=== PATIENT | male | born 1935 | race Caucasian/White ===

== ENCOUNTER 2018-11-13 18:40 | Emergency (ER) | payer MEDICARE, OTHER, SELFPAY ==
[2018-11-13 18:57] VITALS: BP 128/83; PULSE 60; RESP 17; TEMP 36.9; O2SAT 97; BMI 29.7
[2018-11-13 19:00] VITALS: BP 110/72; PULSE 58; RESP 19; O2SAT 96
--- NOTE | 2018-11-13 19:02 | DI.RAD.S_ITS ---
PROCEDURE: XR CHEST 1V INDICATIONS: shortness of breath TECHNIQUE: One view of the chest was acquired. COMPARISON: [facility], , CHEST 1 VIEW, 12/24/2016, 15:56. FINDINGS: Surgical changes and devices: None. Lungs and pleura: Lungs are clear. No pleural effusions or pneumothorax. Mediastinum: Mediastinal contours appear normal. Heart size is normal. Bones and chest wall: No suspicious bony lesions. 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 Overlying soft tissues appear unremarkable. IMPRESSION: No acute cardiopulmonary disease process. Dictated by: Shelby Briggs MD, PhD on 11/13/2018 at 19:31 Approved by: Shelby Briggs MD, PhD on 11/13/2018 at 19:32
--- NOTE | 2018-11-13 19:10 | ED.SOB ---
HPI - SOB/Dyspnea General Chief Complaint: Shortness of Breath/Dyspnea Stated Complaint: states heart problems,tired,swelling in stomach Time Seen by Provider: 11/13/18 18:44 Source: patient Mode of arrival: ambulatory Limitations: no limitations History of Present Illness The patient has intermittent dyspnea on exertion, such as climbing the steps on the [place] when coming here from his home nearby on [facility]. He has also had intermittent chest pain when resting at night. The pain is very brief. He has no sustained pain. He has a thoracic aneurysm that has been monitored by his block cableman. He has had no concerns about the aneurysm since it was initially discovered. He has no associated back pain. He feels like he has had some edema to lower extremities, he has increased urine output. He has no dyspnea at rest, and no orthopnea. He is on Lupron for prostate cancer. He has noted difficulty with urine output. He does structured workouts 3 times weekly, including aerobic and anaerobic exercise. He monitors his heart rate. He routinely gets his heart rate up to 140 bpm when working out. He did so earlier today during his workout without difficulty or concern. He has no history of known CAD, [place], CHF, or PE/DVT. He has no recent illness. Related Data Allergies Allergy/AdvReac Type Severity Reaction Status Date / Time No Known Drug Allergies Allergy Unknown Unverified 07/25/17 13:08 [NO KNOWN DRUG ALLERGIES] meperidine [MEPERIDINE] AdvReac Unknown Unverified 07/25/17 13:08 Review of Systems Review of Systems ROS Unobtainable: All systems reviewed & are unremarkable except as noted in HPI and below Constitutional Denies chills, Reports fatigue (With exertion as described in HPI), Denies fever(s) and Denies lethargy Eyes Comments: No eye complaints ENT Comments: No ENT complaints Cardiovascular Reports as per HPI and Reports dyspnea on exertion Respiratory Reports as per HPI, Denies cough, Reports dyspnea on exertion and Denies wheezing Gastrointestinal Gastrointestinal: Denies abdominal pain, Denies change in bowel habits, Denies diarrhea, Denies nausea and Denies vomiting Genitourinary Comments: Normal urine output. History of prostate cancer. Musculoskeletal Denies back pain, Denies muscle weakness, Denies numbness and Denies tingling Integumentary/Breasts Denies erythema and Denies rash Neurologic Denies confusion, Denies numbness and Denies tingling Psychiatric Denies anxiety and Denies confusion Endocrine Reports fatigue (With exertion as described in HPI) Allergic/Immunologic Denies wheezing [facility] Medical History (Updated 11/13/18 @ 20:44 by Diego Harrington MD) Prostate cancer (Acute) Thoracic aortic aneurysm (Acute) Surgical History (Updated 11/13/18 @ 19:21 by Diego Harrington MD) No pertinent past surgical history (Acute) Social History Smoking Status: Never smoker Social History Smoking Status: Never smoker Exam Initial Vital Signs Initial Vital Signs: Vital Signs Temperature 98.4 F 11/13/18 18:57 Pulse Rate 60 11/13/18 18:57 Respiratory Rate 17 11/13/18 18:57 Blood Pressure 128/83 11/13/18 18:57 Pulse Oximetry 97 11/13/18 18:57 Const General: cooperative and well developed Nutritional Appearance: well nourished Orientation: alert, awake, oriented x3 and not confused [facility] Head: normocephalic and atraumatic Eyes Conjunctivae: conjunctivae normal Sclera: sclerae normal Pupils: PERRL Neck Neck: No JVD Carotids: no bruits Chest Chest: normal inspection of the chest Resp Auscultation: clear to auscultation bilaterally Cardio Rate: regular rate Rhythm: regular rhythm Heart Sounds: S1 normal, S2 normal, no click, no gallops, no murmurs and no rubs Pulses: normal peripheral pulses GI Palpation: soft, No mass, No pulsatile mass and No tender Auscultation: normal bowel sounds Back/Spine/Pelvis Back: normal to inspection Skin General: No erythema Rashes: no rashes Neuro General: alert, oriented x3 and no focal motor deficits Speech: speech normal Extrem General: no pedal edema, no calf tenderness and other (Normal dorsalis pedis pulses bilaterally) Psych Appearance: well kempt Mental Status: mental status grossly normal Attitude: cooperative Thought Content: normal and suicidality Judgment: judgment good Course Course Narrative: Lab evaluation is benign other than creatinine increasing from 1.1-2.4. Cardiac labs were negative. I advised him to follow up with his block cableman, as well as his primary care doctor. Given his history of prostate cancer Urology and/or Nephrology consultation is a likely consideration. Orders Ordered: ED Orders 11/13/18 19:02 XR chest 1V Stat 11/13/18 19:04 B Type Natriuretic Peptide Stat CMP [Comprehensive Metabolic Panel] Stat Complete Blood Count AUTO DIFF Stat D Dimer Stat Troponin & CK Cardiac Panel Stat Vital Signs - 8 hr 11/13/18 18:57 11/13/18 19:00 11/13/18 20:00 Temperature 98.4 F Pulse Rate 60 58 L 54 L Respiratory Rate 17 19 13 Blood Pressure 128/83 Blood Pressure [Left Arm] 110/72 116/69 Pulse Oximetry 97 96 100 11/13/18 20:43 Temperature Pulse Rate 62 Respiratory Rate 18 Blood Pressure Blood Pressure [Left Arm] 125/83 Pulse Oximetry 96 MDM - SOB/Dyspnea Lab Data Attestation: I reviewed the patient's lab results. Result diagrams: 11/13/18 19:04 11/13/18 19:04 Lab Results 11/13/18 11/13/18 11/13/18 Range/Units 19:04 19:04 19:04 WBC 4.2 L (4.5-11.0) X10^3/uL RBC 4.84 (4.5-5.9) X10^6/uL Hgb 12.8 L (13.5-17.5) g/dL Hct 39.6 L (41-53) % MCV 81.9 (80-100) fL MCH 26.5 (26-34) PG MCHC 32.4 (30-36) % RDW 15.1 H (11.6-14.8) % Plt Count 171 (150-400) X10^3/uL Neut % (Auto) 55.9 (50-75) % Lymph % (Auto) 27.2 (25-40) % [place] % (Auto) 12.1 (3-14) % Eos % (Auto) 3.7 (2-4) % Baso % (Auto) 1.1 (0-2) % Neut # (Auto) 2400 (5111-4344) /uL Lymph # (Auto) 1200 (1777-1091) /uL [place] # (Auto) 500 (0-900) /uL Eos # (Auto) 200 (0-450) /uL Baso # (Auto) 0 (0-100) /uL D-Dimer 231 H (<230) ng/mL Sodium 137 (137-145) mmol/L Potassium 4.4 (3.4-5.1) mmol/L Chloride 104 (98-107) mmol/L Carbon Dioxide 26 (22-32) mmol/L BUN 42 H (9-20) mg/dL Creatinine 2.40 H (0.66-1.25) mg/dL Estimated GFR 26.0 L (>60) mL/min BUN/Creatinine Ratio 17.5 (6-22) Glucose 92 (80-110) mg/dL Calcium 9.1 (8.4-10.2) mg/dL Total Bilirubin 0.3 (0.2-1.3) mg/dL AST 22 (17-59) IU/L ALT 21 (21-72) IU/L Alkaline Phosphatase 80 (38-126) U/L Total Creatine Kinase 157 (55-170) U/L CK-MB (CK-2) 2.95 H (<2.37) ng/mL CK-MB (CK-2) Rel Index 1.9 (1.5-5.0) % Troponin I 0.026 (0.01-0.034) ng/mL B-Natriuretic Peptide (<100) Total Protein 6.1 L (6.3-8.2) g/dL Albumin 3.7 (3.5-5.0) g/dL Globulin 2.4 (1.7-4.1) g/dL Albumin/Globulin Ratio 1.5 (1.0-2.8) 11/13/18 Range/Units 19:04 WBC (4.5-11.0) X10^3/uL RBC (4.5-5.9) X10^6/uL Hgb (13.5-17.5) g/dL Hct (41-53) % MCV (80-100) fL MCH (26-34) PG MCHC (30-36) % RDW (11.6-14.8) % Plt Count (150-400) X10^3/uL Neut % (Auto) (50-75) % Lymph % (Auto) (25-40) % [place] % (Auto) (3-14) % Eos % (Auto) (2-4) % Baso % (Auto) (0-2) % Neut # (Auto) (2281-5194) /uL Lymph # (Auto) (9562-8867) /uL [place] # (Auto) (0-900) /uL Eos # (Auto) (0-450) /uL Baso # (Auto) (0-100) /uL D-Dimer (<230) ng/mL Sodium (137-145) mmol/L Potassium (3.4-5.1) mmol/L Chloride (98-107) mmol/L Carbon Dioxide (22-32) mmol/L BUN (9-20) mg/dL Creatinine (0.66-1.25) mg/dL Estimated GFR (>60) mL/min BUN/Creatinine Ratio (6-22) Glucose (80-110) mg/dL Calcium (8.4-10.2) mg/dL Total Bilirubin (0.2-1.3) mg/dL AST (17-59) IU/L ALT (21-72) IU/L Alkaline Phosphatase (38-126) U/L Total Creatine Kinase (55-170) U/L CK-MB (CK-2) (<2.37) ng/mL CK-MB (CK-2) Rel Index (1.5-5.0) % Troponin I (0.01-0.034) ng/mL B-Natriuretic Peptide < 100 (<100) Total Protein (6.3-8.2) g/dL Albumin (3.5-5.0) g/dL Globulin (1.7-4.1) g/dL Albumin/Globulin Ratio (1.0-2.8) Imaging Data Chest x-ray: Radiologist's impression: 6 Diagnostics DATE TYPE STATUS AUTHOR Hx 11/13/18 19:02 Shelby Briggs Demetri Childs 83, M1935 DEP ER, ED.LOC - Main ED: R05 185.42cm 102.058kg BMI: 29.7kg/m? Shortness of Breath/Dyspnea Search Chart No Data to Display No Data to Display ONSET Today 20:43 Demetri Childs Itzel 83 M [address] [address] XRay Report Signed Patient: Demetri Childs AMR#: [id number] : 1936Acct:[id number] Age/Sex: 83 / MDate of Service: 11/13/18 Loc: ED Accession Number: [id number] Procedure: XR chest 1V Ordering Provider: Diego Harrington MD PROCEDURE: XR CHEST 1V INDICATIONS: shortness of breath TECHNIQUE: One view of the chest was acquired. COMPARISON: [facility] with [facility], CHEST 1 VIEW, 12/24/2016, 15:56. FINDINGS: Surgical changes and devices: None. Lungs and pleura: Lungs are clear. No pleural effusions or pneumothorax. Mediastinum: Mediastinal contours appear normal. Heart size is normal. Bones and chest wall: No suspicious bony lesions. 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 Overlying soft tissues appear unremarkable. IMPRESSION: No acute cardiopulmonary disease process. Dictated by: Shelby Briggs MD, PhD on 11/13/2018 at 19:31 Approved by: Shelby Briggs MD, PhD on 11/13/2018 at 19:32 ECG Data Attestation: I personally reviewed and interpreted this ECG as follows: (Sinus bradycardia rate 59 bpm. First-degree AV block. No ectopy. No acute ST T wave changes.) Discharge Plan Departure Patient Disposition: Home Clinical Impression: JOSE (dyspnea on exertion), Acute renal insufficiency Discharge Date/Time: 11/13/18 20:52 Interventions: ED Discharge Assessment Last Done: 11/13/18 20:48 Instructions: Acute Renal Failure, DI for Shortness of Breath Activity Restrictions/Additional Instructions: Contact your block cableman tomorrow to arrange follow-up regarding the difficulty breathing with exertion. Also contact your regular doctor about your decreased kidney function, given your history of prostate cancer your doctor may want to send you to a urologist or dispatcher refinery. Return to the ER as necessary. Referrals: Damien Wallace MD [Primary Care Provider] -
--- NOTE | 2018-11-13 19:13 | ED_ITS ---
HPI - SOB/Dyspnea General Chief Complaint: Shortness of Breath/Dyspnea Stated Complaint: states heart problems,tired,swelling in stomach Time Seen by Provider: 11/13/18 18:44 Source: patient Mode of arrival: ambulatory Limitations: no limitations History of Present Illness The patient has intermittent dyspnea on exertion, such as climbing the steps on the [place] when coming here from his home nearby on [facility]. He has also had intermittent chest pain when resting at night. The pain is very brief. He has no sustained pain. He has a thoracic aneurysm that has been monitored by his note specialist. He has had no concerns about the aneurysm since it was initially discovered. He has no associated back pain. He feels like he has had some edema to lower extremities, he has increased urine output. He has no dyspnea at rest, and no orthopnea. He is on Lupron for prostate cancer. He has noted difficulty with urine output. He does structured workouts 3 times weekly, including aerobic and anaerobic exercise. He monitors his heart rate. He routinely gets his heart rate up to 140 bpm when working out. He did so earlier today during his workout without difficulty or concern. He has no history of known CAD, [place], CHF, or PE/DVT. He has no recent illness. Related Data Allergies Allergy/AdvReac Type Severity Reaction Status Date / Time No Known Drug Allergies Allergy Unknown Unverified 07/25/17 13:08 [NO KNOWN DRUG ALLERGIES] meperidine [MEPERIDINE] AdvReac Unknown Unverified 07/25/17 13:08 Review of Systems Review of Systems ROS Unobtainable: All systems reviewed & are unremarkable except as noted in HPI and below Constitutional Denies chills, Reports fatigue (With exertion as described in HPI), Denies fever(s) and Denies lethargy Eyes Comments: No eye complaints ENT Comments: No ENT complaints Cardiovascular Reports as per HPI and Reports dyspnea on exertion Respiratory Reports as per HPI, Denies cough, Reports dyspnea on exertion and Denies wheezing Gastrointestinal Gastrointestinal: Denies abdominal pain, Denies change in bowel habits, Denies diarrhea, Denies nausea and Denies vomiting Genitourinary Comments: Normal urine output. History of prostate cancer. Musculoskeletal Denies back pain, Denies muscle weakness, Denies numbness and Denies tingling Integumentary/Breasts Denies erythema and Denies rash Neurologic Denies confusion, Denies numbness and Denies tingling Psychiatric Denies anxiety and Denies confusion Endocrine Reports fatigue (With exertion as described in HPI) Allergic/Immunologic Denies wheezing [facility] Medical History (Updated 11/13/18 @ 20:44 by Diego Harrington MD) Prostate cancer (Acute) Thoracic aortic aneurysm (Acute) Surgical History (Updated 11/13/18 @ 19:21 by Diego Harrington MD) No pertinent past surgical history (Acute) Social History Smoking Status: Never smoker Social History Smoking Status: Never smoker Exam Initial Vital Signs Initial Vital Signs: Vital Signs Temperature 98.4 F 11/13/18 18:57 Pulse Rate 60 11/13/18 18:57 Respiratory Rate 17 11/13/18 18:57 Blood Pressure 128/83 11/13/18 18:57 Pulse Oximetry 97 11/13/18 18:57 Const General: cooperative and well developed Nutritional Appearance: well nourished Orientation: alert, awake, oriented x3 and not confused [facility] Head: normocephalic and atraumatic Eyes Conjunctivae: conjunctivae normal Sclera: sclerae normal Pupils: PERRL Neck Neck: No JVD Carotids: no bruits Chest Chest: normal inspection of the chest Resp Auscultation: clear to auscultation bilaterally Cardio Rate: regular rate Rhythm: regular rhythm Heart Sounds: S1 normal, S2 normal, no click, no gallops, no murmurs and no rubs Pulses: normal peripheral pulses GI Palpation: soft, No mass, No pulsatile mass and No tender Auscultation: normal bowel sounds Back/Spine/Pelvis Back: normal to inspection Skin General: No erythema Rashes: no rashes Neuro General: alert, oriented x3 and no focal motor deficits Speech: speech normal Extrem General: no pedal edema, no calf tenderness and other (Normal dorsalis pedis pulses bilaterally) Psych Appearance: well kempt Mental Status: mental status grossly normal Attitude: cooperative Thought Content: normal and suicidality Judgment: judgment good Course Course Narrative: Lab evaluation is benign other than creatinine increasing from 1.1-2.4. Cardiac labs were negative. I advised him to follow up with his note specialist, as well as his primary care doctor. Given his history of prostate cancer Urology and/or Nephrology consultation is a likely consideration. Orders Ordered: ED Orders 11/13/18 19:02 XR chest 1V Stat 11/13/18 19:04 B Type Natriuretic Peptide Stat CMP [Comprehensive Metabolic Panel] Stat Complete Blood Count AUTO DIFF Stat D Dimer Stat Troponin & CK Cardiac Panel Stat Vital Signs - 8 hr 11/13/18 18:57 11/13/18 19:00 11/13/18 20:00 Temperature 98.4 F Pulse Rate 60 58 L 54 L Respiratory Rate 17 19 13 Blood Pressure 128/83 Blood Pressure [Left Arm] 110/72 116/69 Pulse Oximetry 97 96 100 11/13/18 20:43 Temperature Pulse Rate 62 Respiratory Rate 18 Blood Pressure Blood Pressure [Left Arm] 125/83 Pulse Oximetry 96 MDM - SOB/Dyspnea Lab Data Attestation: I reviewed the patient's lab results. Result diagrams: 11/13/18 19:04 11/13/18 19:04 Lab Results 11/13/18 11/13/18 11/13/18 Range/Units 19:04 19:04 19:04 WBC 4.2 L (4.5-11.0) X10^3/uL RBC 4.84 (4.5-5.9) X10^6/uL Hgb 12.8 L (13.5-17.5) g/dL Hct 39.6 L (41-53) % MCV 81.9 (80-100) fL MCH 26.5 (26-34) PG MCHC 32.4 (30-36) % RDW 15.1 H (11.6-14.8) % Plt Count 171 (150-400) X10^3/uL Neut % (Auto) 55.9 (50-75) % Lymph % (Auto) 27.2 (25-40) % [place] % (Auto) 12.1 (3-14) % Eos % (Auto) 3.7 (2-4) % Baso % (Auto) 1.1 (0-2) % Neut # (Auto) 2400 (2955-6982) /uL Lymph # (Auto) 1200 (0165-0641) /uL [place] # (Auto) 500 (0-900) /uL Eos # (Auto) 200 (0-450) /uL Baso # (Auto) 0 (0-100) /uL D-Dimer 231 H (<230) ng/mL Sodium 137 (137-145) mmol/L Potassium 4.4 (3.4-5.1) mmol/L Chloride 104 (98-107) mmol/L Carbon Dioxide 26 (22-32) mmol/L BUN 42 H (9-20) mg/dL Creatinine 2.40 H (0.66-1.25) mg/dL Estimated GFR 26.0 L (>60) mL/min BUN/Creatinine Ratio 17.5 (6-22) Glucose 92 (80-110) mg/dL Calcium 9.1 (8.4-10.2) mg/dL Total Bilirubin 0.3 (0.2-1.3) mg/dL AST 22 (17-59) IU/L ALT 21 (21-72) IU/L Alkaline Phosphatase 80 (38-126) U/L Total Creatine Kinase 157 (55-170) U/L CK-MB (CK-2) 2.95 H (<2.37) ng/mL CK-MB (CK-2) Rel Index 1.9 (1.5-5.0) % Troponin I 0.026 (0.01-0.034) ng/mL B-Natriuretic Peptide (<100) Total Protein 6.1 L (6.3-8.2) g/dL Albumin 3.7 (3.5-5.0) g/dL Globulin 2.4 (1.7-4.1) g/dL Albumin/Globulin Ratio 1.5 (1.0-2.8) 11/13/18 Range/Units 19:04 WBC (4.5-11.0) X10^3/uL RBC (4.5-5.9) X10^6/uL Hgb (13.5-17.5) g/dL Hct (41-53) % MCV (80-100) fL MCH (26-34) PG MCHC (30-36) % RDW (11.6-14.8) % Plt Count (150-400) X10^3/uL Neut % (Auto) (50-75) % Lymph % (Auto) (25-40) % [place] % (Auto) (3-14) % Eos % (Auto) (2-4) % Baso % (Auto) (0-2) % Neut # (Auto) (2018-2495) /uL Lymph # (Auto) (9537-0436) /uL [place] # (Auto) (0-900) /uL Eos # (Auto) (0-450) /uL Baso # (Auto) (0-100) /uL D-Dimer (<230) ng/mL Sodium (137-145) mmol/L Potassium (3.4-5.1) mmol/L Chloride (98-107) mmol/L Carbon Dioxide (22-32) mmol/L BUN (9-20) mg/dL Creatinine (0.66-1.25) mg/dL Estimated GFR (>60) mL/min BUN/Creatinine Ratio (6-22) Glucose (80-110) mg/dL Calcium (8.4-10.2) mg/dL Total Bilirubin (0.2-1.3) mg/dL AST (17-59) IU/L ALT (21-72) IU/L Alkaline Phosphatase (38-126) U/L Total Creatine Kinase (55-170) U/L CK-MB (CK-2) (<2.37) ng/mL CK-MB (CK-2) Rel Index (1.5-5.0) % Troponin I (0.01-0.034) ng/mL B-Natriuretic Peptide < 100 (<100) Total Protein (6.3-8.2) g/dL Albumin (3.5-5.0) g/dL Globulin (1.7-4.1) g/dL Albumin/Globulin Ratio (1.0-2.8) Imaging Data Chest x-ray: Radiologist's impression: 6 Diagnostics DATE TYPE STATUS AUTHOR Hx 11/13/18 19:02 Shelby Briggs Demetri Childs 83, M1935 DEP ER, ED.LOC - Main ED: R05 185.42cm 102.058kg BMI: 29.7kg/m? Shortness of Breath/Dyspnea Search Chart No Data to Display No Data to Display ONSET Today 20:43 Demetri Childs Itzel 83 M [address] [address] XRay Report Signed Patient: Demetri Childs AMR#: [id number] : 1936Acct:[id number] Age/Sex: 83 / MDate of Service: 11/13/18 Loc: ED Accession Number: [id number] Procedure: XR chest 1V Ordering Provider: Diego Harrington MD PROCEDURE: XR CHEST 1V INDICATIONS: shortness of breath TECHNIQUE: One view of the chest was acquired. COMPARISON: [facility], CHEST 1 VIEW, 12/24/2016, 15:56. FINDINGS: Surgical changes and devices: None. Lungs and pleura: Lungs are clear. No pleural effusions or pneumothorax. Mediastinum: Mediastinal contours appear normal. Heart size is normal. Bones and chest wall: No suspicious bony lesions. Bilateral shoulder o steoarthritis with right shoulder intra-articular loose bodies. Overlying soft tissues appear unremarkable. IMPRESSION: No acute cardiopulmonary disease process. Dictated by: Shelby Briggs MD, PhD on 11/13/2018 at 19:31 Approved by: Shelby Briggs MD, PhD on 11/13/2018 at 19:32 ECG Data Attestation: I personally reviewed and interpreted this ECG as follows: (Sinus bradycardia rate 59 bpm. First-degree AV block. No ectopy. No acute ST T wave changes.) Discharge Plan Departure Patient Disposition: Home Clinical Impression: JOSE (dyspnea on exertion), Acute renal insufficiency Discharge Date/Time: 11/13/18 20:52 Interventions: ED Discharge Assessment Last Done: 11/13/18 20:48 Instructions: Acute Renal Failure, DI for Shortness of Breath Activity Restrictions/Additional Instructions: Contact your note specialist tomorrow to arrange follow-up regarding the difficulty breathing with exertion. Also contact your regular doctor about your decreased kidney function, given your history of prostate cancer your doctor may want to send you to a urologist or treasury associate. Return to the ER as necessary. Referrals: Damien Wallace MD [Primary Care Provider] -
[2018-11-13 19:14] LABS: Add Manual Diff / Slide Review NO; Basophils Absolute Auto 0 /uL (0-100); Basophils Percent Auto 1.1 % (0-2); Eosinophils Absolute Auto 200 /uL (0-450); Eosinophils Percent Auto 3.7 % (2-4); Hematocrit 39.6 % (41-53); Hemoglobin 12.8 g/dL (13.5-17.5); Lymphocytes Absolute Auto 1200 /uL (1100-4500); Lymphocytes Percent Auto 27.2 % (25-40); Mean Corpuscular HGB Conc 32.4 % (30-36); Mean Corpuscular Hemoglobin 26.5 PG (26-34); Mean Corpuscular Volume 81.9 fL (80-100); Monocytes Absolute Auto 500 /uL (0-900); Monocytes Percent Auto 12.1 % (3-14); Neutrophils Absolute Auto 2400 /uL (1500-7000); Neutrophils Percent Auto 55.9 % (50-75); Platelet Count 171 X10^3/uL (150-400); Red Blood Cell Count 4.84 X10^6/uL (4.5-5.9); Red Cell Distribution Width 15.1 % (11.6-14.8); White Blood Cell Count 4.2 X10^3/uL (4.5-11.0)
[2018-11-13 19:22] LABS: D Dimer 231 ng/mL (<230)
[2018-11-13 19:23] LABS: Alanine Aminotransferase 21 IU/L (21-72); Albumin 3.7 g/dL (3.5-5.0); Albumin Globulin Ratio 1.5 (1.0-2.8); Alkaline Phosphatase 80 U/L (38-126); Aspartate Aminotransferase 22 IU/L (17-59); Bilirubin Total 0.3 mg/dL (0.2-1.3); Blood Urea Nitrogen 42 mg/dL (9-20); Calcium 9.1 mg/dL (8.4-10.2); Carbon Dioxide 26 mmol/L (22-32); Chloride 104 mmol/L (98-107); Creatine Kinase 157 U/L (55-170); Globulin 2.4 g/dL (1.7-4.1); Glucose 92 mg/dL (80-110); HEMOLYSIS < 15 (0-50); Potassium 4.4 mmol/L (3.4-5.1); Sodium 137 mmol/L (137-145); Total Protein 6.1 g/dL (6.3-8.2)
[2018-11-13 19:34] LABS: Troponin I 0.026 ng/mL (0.01-0.034)
[2018-11-13 19:39] LABS: BUN Creatinine Ratio 17.5 (6-22); CKMB % Relative Index 1.9 % (1.5-5.0); Creatine Kinase MB 2.95 ng/mL (<2.37)
[2018-11-13 20:00] VITALS: BP 116/69; PULSE 54; RESP 13; O2SAT 100
[2018-11-13 20:14] LABS: B Type Natriuretic Peptide < 100 (<100)
[2018-11-13 20:43] VITALS: BP 125/83; PULSE 62; RESP 18; O2SAT 96
== END 2018-11-13 20:52 | disposition home or self-care (01) ==
PROVIDERS: Emergency Provider Emergency Medicine; PCP Family Medicine
DX: R06.09 Other forms of dyspnea (principal); N28.9 Disorder of kidney and ureter, unspecified
CPT/HCPCS: 36415; 71045; 80053; 82550; 82553; 83880; 84484; 85025; 85379; 93005; 99283; 99285

== ENCOUNTER → 2019-08-06 08:53 | Outpatient (CLI) | payer MEDICARE, OTHER, SELFPAY ==
--- NOTE | 2019-08-06 | DI.ECHO.S_ITS ---
[place] [facility] +---------+ : : [address] : [address] : : : : [id number] : : : : Phone: [phone]+ Echocardiogram Report + + :Name: STEPHENIE KHAN Study Date: 08/06/2019 Height: 73 in : :[facility] Weight: 233 lb : : Gender: Male BSA: 2.3 m2 : :: 1935 Age: 83 yrs BP: 144/84 mmHg: :Reason For Study: Aortic Ectasia : :Ordering Physician: Kris Ferguson : :Santiago Performed By: Virginia De León : :Referring: KRIS HENDERSON : + + Interpretation Summary 1) Left ventricular thickness is moderately increased concentrically with normal size and normal systolic function (65-70%). 2) Normal right ventricular size and function. 3) Mild aortic regurgitation present. 4) Ascending aorta is enlarged, measuring 5.0 cm. Aortic arch is mildly enlarged, measuring 3.6 cm. 5) Compared to the Echo done 12/26/2018, no significant change. Procedure: A two-dimensional transthoracic echocardiogram with color flow and Doppler was performed. Comparison is made with the echocardiogram of 12/26/2018. The study quality was technically good. The patient was in normal sinus rhythm during the exam. Left Ventricle: The left ventricle is normal in size. Left ventricular wall thickness is moderately increased. Proximal septal thickening is noted. The ejection fraction is estimated to be 65-70%. Left ventricular systolic function is normal without focal wall motion abnormalities. Right Ventricle: The right ventricle is normal in size and function. Atria: Both atria are moderately dilated. Mitral Valve: The mitral valve is normal in structure and function. There is mild mitral regurgitation. Aortic Valve: The aortic valve is trileaflet. The aortic valve opens well. There is no aortic valve stenosis. There is mild aortic regurgitation. Tricuspid Valve: The tricuspid valve is normal in structure and function. There is mild tricuspid regurgitation. The right ventricular systolic pressure is estimated to be at least 37 mmHg based on an estimated right atrial pressure of 3 mm Hg. Pulmonic Valve: The pulmonic valve is not well visualized. There is no pulmonic valvular regurgitation. Great Vessels: The aortic root is mildly dilated. The ascending aorta is severely enlarged. The aortic arch is mildly enlarged. The IVC is of normal diameter and collapses greater than 50% with a sniff. This suggests a low right atrial pressure of 3 mm Hg. Pericardium/ Pleura There is no pericardial effusion. There has been no significant change since the previous study. MMode/2D Measurements & Calculations LVIDd: 4.4 cm LVOT diam: 2.3 cm LVIDs: 2.9 cm Ao root diam: 4.0 cm FS: 34.7 % asc Aorta Diam: 5.0 cm EPSS: 0.39 cm Ao Arch Diam (Prox Trans): 3.6 cm IVSd: 1.4 cm LVPWd: 1.5 cm LV angel. diameter/BSA (cm/m^2): 1.9 LV sys. diameter/BSA (cm/m^2): 1.2 LA A2 area: 39.6 cm2 RA long axis: 7.2 cm LA A4 area: 26.5 cm2 RA area: 31.1 cm2 LA length (vol): 6.5 cm RA vol: 114.4 ml LA vol: 136.3 ml RA : 49.8 ml/m2 LA vol index: 59.3 ml/m2 RVD1 (basal): 3.8 cm TAPSE: 3.1 cm Doppler Measurements & Calculations Ao V2 max: 167.6 cm/sec LVOT Max Ziggy: 133.3 cm/sec Ao V2 mean: 111.8 cm/sec LV V1 max P.1 mmHg Ao max P.2 mmHg LV V1 VTI: 32.8 cm Ao mean P.8 mmHg KYREE(I,D): 3.9 cm2 Ao V2 VTI: 35.3 cm KYREE(V,D): 3.3 cm2 sev ratio: 0.93 KYREE indexed to BSA (cm^2/m^2): 1.7 AI P1/2t: 644.0 msec AI dec slope: 214.7 cm/sec2 MV E max ziggy: 76.1 cm/sec TR max ziggy: 292.8 cm/sec MV A max ziggy: 49.8 cm/sec TR max P.4 mmHg MV E/A: 1.5 PA V2 max: 83.5 cm/sec Med Peak E' Ziggy: 7.0 cm/sec PA V2 mean: 57.8 cm/sec E/E' med: 10.9 PA mean P.5 mmHg Lat Peak E' Ziggy: 8.2 cm/sec E/E' lat: 9.3 E/e' average: 10.1 MV dec time: 0.22 sec SV(LVOT): 137.4 ml Reading Physician:01:28 PM
== END ==
PROVIDERS: PCP Family Medicine; Referring Provider Family Medicine; Visit Provider Internal Medicine Cardiovascular Disease
DX: I08.3 Combined rheumatic disorders of mitral, aortic and tricuspid valves (principal); I77.810 Thoracic aortic ectasia
CPT/HCPCS: 93306

== ENCOUNTER → 2020-10-15 11:54 | Outpatient (CLI) | payer MEDICARE, OTHER, SELFPAY ==
[2020-10-17 10:16] LABS: PSA, Total < 0.1 ng/mL (0.0-4.0)
== END ==
PROVIDERS: Visit Provider Urology
DX: C61 Malignant neoplasm of prostate (principal)
CPT/HCPCS: 84153; 84154

== ENCOUNTER → 2021-09-21 08:24 | Outpatient (CLI) | payer MEDICARE, OTHER, SELFPAY ==
[2021-09-21 19:27] LABS: Prostate Specific Antigen < 0.064 ng/mL (0.10-4.00)
[2021-09-25 21:07] LABS: Percent Free Testosterone 1.34 % (1.50-4.20); Testosterone Free 1.62 ng/dL (5.00-21.00); Testosterone Total 121.2 ng/dL (264.0-916.0)
== END ==
PROVIDERS: PCP Family Medicine; Visit Provider Family Medicine
DX: Z85.46 Personal history of malignant neoplasm of prostate (principal); D64.9 Anemia, unspecified; N18.32 Chronic kidney disease, stage 3b
CPT/HCPCS: 84153; 84402; 84403

== ENCOUNTER → 2022-09-20 14:41 | Outpatient (CLI) | payer MEDICARE, OTHER, SELFPAY ==
[2022-09-20 19:39] LABS: HEMOLYSIS < 15 (0-50)
[2022-09-20 19:40] LABS: Add Manual Diff / Slide Review NO; Basophils Absolute Auto 0 /uL (0-100); Basophils Percent Auto 0.7 % (0-2); Eosinophils Absolute Auto 200 /uL (0-450); Hematocrit 40.2 % (41-53); Hemoglobin 13.3 g/dL (13.5-17.5); Lymphocytes Absolute Auto 1300 /uL (1100-4500); Lymphocytes Percent Auto 23.7 % (25-40); Mean Corpuscular HGB Conc 33.2 % (30-36); Mean Corpuscular Hemoglobin 27.1 PG (26-34); Mean Corpuscular Volume 81.6 fL (80-100); Monocytes Absolute Auto 700 /uL (0-900); Monocytes Percent Auto 12.4 % (3-14); Neutrophils Absolute Auto 3200 /uL (1500-7000); Neutrophils Percent Auto 59.2 % (50-75); Platelet Count 190 X10^3/uL (150-400); Red Blood Cell Count 4.92 X10^6/uL (4.5-5.9); Red Cell Distribution Width 15.2 % (11.6-14.8); White Blood Cell Count 5.3 X10^3/uL (4.5-11.0)
[2022-09-20 19:44] LABS: BUN Creatinine Ratio 26.1 (6-22); Blood Urea Nitrogen 37 mg/dL (9-20); Calcium 9.3 mg/dL (8.4-10.2); Carbon Dioxide 28 mmol/L (22-32); Chloride 102 mmol/L (98-107); Estimated Glomerular Filt Rate 48 mL/min (>60); Glucose 104 mg/dL (80-110); HEMOLYSIS < 15 (0-50); Iron 49 ug/dL (49-181); Potassium 4.6 mmol/L (3.4-5.1); Sodium 137 mmol/L (137-145)
[2022-09-20 19:53] LABS: Percent Iron Saturation 16 % (20-50); Total Iron Binding Capacity 301 ug/dL (261-462); Transferrin 217 mg/dL (206-381)
[2022-09-20 20:16] LABS: Prostate Specific Antigen < 0.064 ng/mL (0.10-4.00)
[2022-09-25 14:55] LABS: Vitamin B12 574 pg/mL (239-931)
== END ==
PROVIDERS: PCP Family Medicine; Visit Provider Family Medicine
DX: N18.32 Chronic kidney disease, stage 3b (principal); Z85.46 Personal history of malignant neoplasm of prostate; D64.9 Anemia, unspecified
CPT/HCPCS: 80048; 82607; 83540; 83550; 84153; 85025

== ENCOUNTER 2022-10-02 14:24 | Observation (INO) | payer MEDICARE, OTHER, SELFPAY ==
[2022-10-02] VITALS (10 sets, daily range): BP systolic 111–153; BP diastolic 71–98; PULSE 54–69; RESP 16–24; TEMP 36.2–36.4; O2SAT 96–100; BMI 30.9; BMI 29.6
--- NOTE | 2022-10-02 14:43 | DI.RAD.S_ITS ---
PROCEDURE: XR CHEST 1V INDICATIONS: Shortness of breath TECHNIQUE: One view of the chest was acquired. [facility], LAUREN, CHEST 1 VIEW, 12/24/2016, 15:56. FINDINGS: Surgical changes and devices: None. Lungs and pleura: Small pleural effusions versus bibasilar scarring. Mediastinum: Mediastinal contours appear normal. Heart size is enlarged. Bones and chest wall: Dystrophic calcifications about the right shoulder joint. IMPRESSION: Small pleural effusions versus bibasilar scarring. Dictated by: Margarito Marie M.D. on 10/02/2022 at 15:18 Approved by: Margarito Marie M.D. on 10/02/2022 at 15:18
[2022-10-02 15:07] LABS: INR 1.1 (0.9-1.3); Prothrombin Time 13.1 SECONDS (10.1-12.7)
[2022-10-02 15:11] LABS: Lactate (Lactic Acid) 1.2 mmol/L (0.7-2.1)
[2022-10-02 15:12] LABS: Alanine Aminotransferase 43 IU/L (<50); Albumin 3.8 g/dL (3.5-5.0); Albumin Globulin Ratio 1.6 (1.0-2.8); Alkaline Phosphatase 139 U/L (38-126); Aspartate Aminotransferase 30 IU/L (17-59); BUN Creatinine Ratio 26.6 (6-22); Bilirubin Total 0.4 mg/dL (0.2-1.3); Blood Urea Nitrogen 29 mg/dL (9-20); Calcium 8.9 mg/dL (8.4-10.2); Carbon Dioxide 23 mmol/L (22-32); Chloride 106 mmol/L (98-107); Estimated Glomerular Filt Rate > 60 mL/min (>60); Globulin 2.4 g/dL (1.7-4.1); Glucose 102 mg/dL (80-110); HEMOLYSIS 23 (0-50); Potassium 4.4 mmol/L (3.4-5.1); Sodium 135 mmol/L (137-145); Total Protein 6.2 g/dL (6.3-8.2)
[2022-10-02 15:24] LABS: NT-proBNP (BNP-Adult 18+) 3510 pg/mL (<450); Troponin I 0.033 ng/mL (0.01-0.034)
[2022-10-02 15:54] LABS: Add Manual Diff / Slide Review NO; Basophils Absolute Auto 0 /uL (0-100); Eosinophils Absolute Auto 300 /uL (0-450); Eosinophils Percent Auto 6.2 % (2-4); Hematocrit 40.1 % (41-53); Hemoglobin 13.3 g/dL (13.5-17.5); Lymphocytes Absolute Auto 1300 /uL (1100-4500); Lymphocytes Percent Auto 28.2 % (25-40); Mean Corpuscular HGB Conc 33.2 % (30-36); Mean Corpuscular Hemoglobin 26.9 PG (26-34); Monocytes Absolute Auto 500 /uL (0-900); Monocytes Percent Auto 10.6 % (3-14); Neutrophils Absolute Auto 2400 /uL (1500-7000); Platelet Count 173 X10^3/uL (150-400); Red Blood Cell Count 4.95 X10^6/uL (4.5-5.9); Red Cell Distribution Width 15.5 % (11.6-14.8); White Blood Cell Count 4.5 X10^3/uL (4.5-11.0)
--- NOTE | 2022-10-02 17:01 | PC.NURSE ---
Pt has BLE swelling x1 moth plus 2 edema , occasional CP, denying CP currently, no prior hx of afib. Afib on monitor
[2022-10-02 17:21] LABS: Troponin I 0.036 ng/mL (0.01-0.034)
--- NOTE | 2022-10-02 17:46 | ED.SOB ---
HPI - SOB/Dyspnea General Chief Complaint: Shortness of Breath/Dyspnea Stated Complaint: SOB Time Seen by Provider: 10/02/22 17:01 Source: patient Mode of arrival: Ambulatory Limitations: no limitations History of Present Illness HPI Narrative: Patient here for dyspnea. No chest pain. Patient is seen by primary care earlier this month for the same complaint but multiple outpatient orders for placement none have been done including echocardiogram. Cardiology is Dr. Henderson. Patient denies any chest pain. Patient becomes very short of breath when walking or exercising with home device monitoring goes up to 140 beats per minute. Patient has had swelling of both legs. No calf pain. Related Data Home Medications Medication Instructions Recorded Confirmed No Known Home Medications 08/04/21 10/02/22 Allergies Allergy/AdvReac Type Severity Reaction Status Date / Time No Known Drug Allergies Allergy Verified 10/02/22 14:43 Review of Systems Review of Systems Narrative: GENERAL: negative chills, fatigue, malaise, fever, sweats. HEENT: negative sinus pain, ear pain, sore throat RESPIRATORY: Positive dyspnea, negative cough CARDIOVASCULAR: negative chest pain, palpitations, positive peripheral edema GASTROINTESTINAL: negative nausea, vomiting, abdominal pain : negative dysuria, frequency, hematuria MUSCULOSKELETAL: negative muscle or bony pain SKIN: negative rash, skin lesions NEUROLOGIC: negative weakness, numbness ROS Unobtainable: All systems reviewed & are unremarkable except as noted in HPI and below Patient History Medical History Calcific tendinitis, left upper arm Other specified arthritis, left elbow Prostate cancer Thoracic aortic aneurysm Surgical History (Updated 10/02/22 @ 21:11 by GABRIELLA Townsend-SHANNAN) History of hip surgery History of right knee surgery History of transurethral resection of prostate Family History (Updated 10/02/22 @ 21:12 by GABRIELLA Townsend-SHANNAN) Brother Heart attack Mother Macular degeneration Social History household members: spouse Smoking Status: Never smoker Smoking Status: Never smoker alcohol intake frequency: holidays/special occasions only Substance Use Type: does not use Exam Narrative Exam Narrative: GENERAL: in no distress, not toxic not dyspneic HEAD: Normocephalic. EYES: Pupils equal round ENT: Mucous membranes moist. NECK: Trachea midline. CARDIOVASCULAR: Irregularly irregular rate and rhythm RESPIRATORY: Clear to auscultation. Breath sounds equal bilaterally. No wheezes, rales, or rhonchi. GASTROINTESTINAL: Abdomen soft, non-tender EXTREMITIES: No gross deformities. There is 2+ bilateral ankle edema BACK: No flank tenderness. NEURO: AOx4. SKIN: Warm and dry PSYCH: Not anxious, is cooperative Initial Vital Signs Initial Vital Signs: Vital Signs Temperature 97.6 F 10/02/22 14:34 Pulse Rate 69 10/02/22 14:34 Respiratory Rate 24 10/02/22 14:34 Blood Pressure 153/88 H 10/02/22 14:34 Pulse Oximetry 99 10/02/22 14:34 Oxygen Delivery Method Room Air 10/02/22 14:34 Course Orders Ordered: Acetaminophen (Acetaminophen 325 Mg Tablet) 650 mg PO Q6H PRN PRN Reason: Fever/Mild Pain (1-3) Apixaban (Apixaban 5 Mg Tablet) 5 mg PO BID [facility] Last Admin: 10/02/22 21:51 Dose: 5 mg Documented By: AM Furosemide (Furosemide 20 Mg Tablet) 20 mg PO DAILY [facility] Sodium Chloride (Normal Saline 0.9%) 1,000 mls @ 21 mls/hr IV CONT [facility] Metoprolol Succinate (Metoprolol Er 25 Mg Tablet) 12.5 mg PO BID [facility] Last Admin: 10/02/22 21:52 Dose: 12.5 mg Documented By: AM Naloxone HCl (Naloxone 0.4 Mg/Ml Vial) 0.2 mg IV Q2MIN PRN PRN Reason: Opiate Reversal Ondansetron HCl (Ondansetron 4 Mg/2 Ml Inj) 4 mg IV Q8HR PRN PRN Reason: Nausea And Vomiting Sennosides (Sennosides 8.6 Mg Tablet) 17.2 mg PO BEDTIME [facility] Last Admin: 10/02/22 21:51 Dose: 17.2 mg Documented By: AM Simethicone (Simethicone 80 Mg Tablet) 80 mg PO QID PRN PRN Reason: Flatulence Discontinued Medications Apixaban (Apixaban 5 Mg Tablet) 5 mg PO NOW ONE Stop: 10/02/22 17:45 Last Admin: 10/02/22 18:08 Dose: 5 mg Documented By: KM Furosemide (Furosemide 40 Mg/4 Ml Vial) 40 mg IV NOW ONE Stop: 10/02/22 17:45 Last Admin: 10/02/22 18:08 Dose: 40 mg Documented By: JUAN C Sodium Chloride (Normal Saline 0.9%) 500 mls @ 21 mls/hr IV CONT EDELMIRA Metoprolol Succinate (Metoprolol Er 25 Mg Tablet) 25 mg PO BID EDELMIRA Vital Signs Vital signs: Vital Signs - 8 hr 10/02/22 14:34 10/02/22 16:31 10/02/22 16:34 Temperature 97.6 F Pulse Rate 69 66 Respiratory Rate 24 Blood Pressure 153/88 H 148/87 H Pulse Oximetry 99 98 Oxygen Delivery Method Room Air 10/02/22 16:34 Temperature Pulse Rate 69 Respiratory Rate Blood Pressure Pulse Oximetry 98 Oxygen Delivery Method MDM - SOB/Dyspnea Lab Data 10/03/22 05:19 10/03/22 05:19 Labs: Lab Results 10/02/22 10/02/22 10/02/22 Range/Units 14:49 14:49 14:49 WBC 4.5 (4.5-11.0) X10^3/uL RBC 4.95 (4.5-5.9) X10^6/uL Hgb 13.3 L (13.5-17.5) g/dL Hct 40.1 L (41-53) % MCV 81.0 (80-100) fL MCH 26.9 (26-34) PG MCHC 33.2 (30-36) % RDW 15.5 H (11.6-14.8) % Plt Count 173 (150-400) X10^3/uL Neut % (Auto) 54.0 (50-75) % Lymph % (Auto) 28.2 (25-40) % [place] % (Auto) 10.6 (3-14) % Eos % (Auto) 6.2 H (2-4) % Baso % (Auto) 1.0 (0-2) % Neut # (Auto) 2400 (8320-3374) /uL Lymph # (Auto) 1300 (2165-8962) /uL [place] # (Auto) 500 (0-900) /uL Eos # (Auto) 300 (0-450) /uL Baso # (Auto) 0 (0-100) /uL PT 13.1 H (10.1-12.7) SECONDS INR 1.1 (0.9-1.3) Sodium 135 L (137-145) mmol/L Potassium 4.4 (3.4-5.1) mmol/L Chloride 106 (98-107) mmol/L Carbon Dioxide 23 (22-32) mmol/L BUN 29 H (9-20) mg/dL Creatinine 1.09 (0.66-1.25) mg/dL Estimated GFR > 60 (>60) mL/min BUN/Creatinine Ratio 26.6 H (6-22) Glucose 102 (80-110) mg/dL Lactate (0.7-2.1) mmol/L Calcium 8.9 (8.4-10.2) mg/dL Total Bilirubin 0.4 (0.2-1.3) mg/dL AST 30 (17-59) IU/L ALT 43 (<50) IU/L Alkaline Phosphatase 139 H (38-126) U/L Troponin I 0.033 (0.01-0.034) ng/mL NT-Pro-B Natriuret Pep 3510 H (<450) pg/mL Total Protein 6.2 L (6.3-8.2) g/dL Albumin 3.8 (3.5-5.0) g/dL Globulin 2.4 (1.7-4.1) g/dL Albumin/Globulin Ratio 1.6 (1.0-2.8) 10/02/22 10/02/22 Range/Units 14:49 16:45 WBC (4.5-11.0) X10^3/uL RBC (4.5-5.9) X10^6/uL Hgb (13.5-17.5) g/dL Hct (41-53) % MCV (80-100) fL MCH (26-34) PG MCHC (30-36) % RDW (11.6-14.8) % Plt Count (150-400) X10^3/uL Neut % (Auto) (50-75) % Lymph % (Auto) (25-40) % [place] % (Auto) (3-14) % Eos % (Auto) (2-4) % Baso % (Auto) (0-2) % Neut # (Auto) (5420-6945) /uL Lymph # (Auto) (3498-4603) /uL [place] # (Auto) (0-900) /uL Eos # (Auto) (0-450) /uL Baso # (Auto) (0-100) /uL PT (10.1-12.7) SECONDS INR (0.9-1.3) Sodium (137-145) mmol/L Potassium (3.4-5.1) mmol/L Chloride (98-107) mmol/L Carbon Dioxide (22-32) mmol/L BUN (9-20) mg/dL Creatinine (0.66-1.25) mg/dL Estimated GFR (>60) mL/min BUN/Creatinine Ratio (6-22) Glucose (80-110) mg/dL Lactate 1.2 (0.7-2.1) mmol/L Calcium (8.4-10.2) mg/dL Total Bilirubin (0.2-1.3) mg/dL AST (17-59) IU/L ALT (<50) IU/L Alkaline Phosphatase (38-126) U/L Troponin I 0.036 H (0.01-0.034) ng/mL NT-Pro-B Natriuret Pep (<450) pg/mL Total Protein (6.3-8.2) g/dL Albumin (3.5-5.0) g/dL Globulin (1.7-4.1) g/dL Albumin/Globulin Ratio (1.0-2.8) Imaging Data Chest x-ray: Radiologist's Impression: [address] [address] XRay Report Signed Patient: Demetri Childs MR#: [id number] : 1935 Acct:[id number] Age/Sex: 86 / M Date of Service: 10/02/22 Loc: ED Accession Number: [id number] ?? Procedure: XR chest 1V Ordering Provider: Damien Romero MD PROCEDURE:? XR CHEST 1V ? INDICATIONS:? Shortness of breath ? TECHNIQUE:? One view of the chest was acquired.? ? COMPARISON:? [facility], CR, XR CHEST 1V, 11/13/2018, 19:22.? [facility], , CHEST 1 VIEW, 12/24/2016, 15:56. ? FINDINGS:? ? Surgical changes and devices:? None.? ? Lungs and pleura:? Small pleural effusions versus bibasilar scarring. ? Mediastinum:? Mediastinal contours appear normal.? Heart size is enlarged.? ? Bones and chest wall:? Dystrophic calcifications about the right shoulder joint. ? IMPRESSION:? Small pleural effusions versus bibasilar scarring. ? ? Dictated by: Margarito Marie M.D. on 10/02/2022 at 15:18 ? ? Approved by: Margarito Marie M.D. on 10/02/2022 at 15:18 ? MDM Narrative Medical decision making narrative: After history and exam MDM CC: Complicating co-morbidities: Data collected from: Medical records reviewed: Differential considered: Includes but not limited to Exam documented above, pertinent findings include: Lab Test results independently reviewed as above. Pertinent findings: WBC 4.5 hemoglobin 13.3 INR 1.1 sodium 135 potassium 4.4 GFR greater than 60 Troponin 0.036 BNP 3510 Independently reviewed EKG atrial fibrillation rate 52 Imaging studies independently reviewed: Chest x-ray small pleural effusions versus bibasilar scarring Consultations: 5:15 p.m.. I spoke with Dr. Henderson, cardiology, regarding his patient, he would like patient admitted diuresed started on Eliquis echocardiogram in the morning. No stress test. Troponin reviewed and likely from atrial fibrillation and not acute coronary event. 5:45 p.m.. Spoke with hospitalist, Dr. Jasso, he will admit patient Treatments: Eliquis Lasix Re-evaluations: 5:50 p.m.. Reviewed with patient and . They do agree understand need for admission. Their post closing specialist would like them admitted. Discussion: Appropriate for admission for symptomatic new onset atrial fibrillation with fluid overload. Diuresis has been started. Eliquis has been started. Rate controlled. No rate control medication indicated at this time. Spoke with cardiology as well as hospitalist. Diagnosis: New onset atrial fibrillation Discharge Plan Departure Patient Disposition: Admitted as Observation Clinical Impression: Atrial fibrillation, new onset Admit Date/Time: 10/02/22 17:56 Admit Provider: Demetri Jasso
[2022-10-02] MEDS: APIXABAN 5 MG TABLET PO ×2 (18:08→21:51)
[2022-10-02] MEDS: FUROSEMIDE 40 MG/4 ML VIAL IV (18:08)
--- NOTE | 2022-10-02 19:42 | P.HP_ITS ---
History of Present Illness History of Present Illness Date Patient Seen: 10/02/22 Time Patient Seen: 18:49 Chief complaint: new Afib rvr Narrative: Demetri Childs is a delightful fit 86-year-old male with a past medical history of CKD stage IIIB, prostate cancer, and thoracic aortic aneurysm without rupture who takes no daily medications, presented to the ED after a week of exertional dyspnea with tachycardia (HR in the 140s). Patient was found to be in AFib RVR 140s in the ED. patient was placed on drip for rate control in the ED cardioverted. Initial troponin 0.[address] Romero consulted Dr. Santiago Maldonado Cardiology who recommended the patient be admitted for gentle diuresis, echo, and oral metoprolol as patient is rate controlled. In ED following cardioversion temp 97.1?, 151/98, 63, 17, 97% on room air. Patient denies any cardiac history, patient's brother of a heart attack no other known family history. Patient had been scheduled by PCP for outpatient echo/stress test and appointment with Dr. Henderson in October. On admit patient denies chest pain, palpitations and tachycardia have resolved, shortness in breath, headache, changes in vision, difficulty swallowing, speech impairment, weakness, numbness, tingling, difficulty with ambulation, recent falls, head injury, LOC, fever, body aches, chills, cough, recent exposure to illness, abdominal pain, nausea, vomiting, urinary incontinence/retention, dysuria, frequency, urgency, hematuria, bowel changes, constipation, incontinence, melena, rashes, recent changes to medication, illness, injury, or trauma. On admit patient is stable, asymptomatic, rate controlled sinus rate of 63. Patient's lab findings were predominantly unremarkable with the exception of BUN of 29, previous 37. Alk-phos 139 previous 80, elevated troponin 0.036 which is now trending down 0.033. BNP 3510 chest x-ray small pleural effusion. Lactate is normal, In ED EKG I personally reviewed atrial fibrillation rate 52 with slow ventricular response and ventricular escape complexes nonspecific T-wave changes. Patient admitted for atrial fibrillation with RVR, myocardial injury (demand ischemia). Patient admitted for atrial fibrillation with RVR, myocardial injury risk stratification. [facility] Medical History Calcific tendinitis, left upper arm Other specified arthritis, left elbow Prostate cancer Thoracic aortic aneurysm Surgical History (Updated 10/02/22 @ 21:11 by KLEBER Townsend) History of hip surgery History of right knee surgery History of transurethral resection of prostate Family History (Updated 10/02/22 @ 21:12 by KLEBER Townsend) Brother Heart attack Mother Macular degeneration Social History household members: spouse Smoking Status: Never smoker Meds Home Medications and Allergies Home Medications Medication Instructions Recorded Confirmed Type No Known Home Medications 08/04/21 10/02/22 History Allergies Allergy/AdvReac Type Severity Reaction Status Date / Time No Known Drug Allergies Allergy Verified 10/02/22 14:43 Review of Systems Review of Systems Narrative: All 12 point systems reviewed with the patient and are negative except otherwise documented. Exam Vital Signs (past 8 hours): - 10/02/22 14:34 10/02/22 16:31 10/02/22 16:34 Temperature 97.6 F Pulse Rate 69 66 Respiratory Rate 24 Blood Pressure 153/88 H 148/87 H Pulse Oximetry 99 98 Oxygen Delivery Method Room Air Oxygen Flow Rate 10/02/22 16:34 10/02/22 17:00 10/02/22 17:30 Temperature Pulse Rate 69 56 L Respiratory Rate Blood Pressure 131/71 Pulse Oximetry 98 97 Oxygen Delivery Method Oxygen Flow Rate 10/02/22 17:30 10/02/22 18:00 10/02/22 18:01 Temperature Pulse Rate 62 59 L Respiratory Rate 16 Blood Pressure 150/88 H Pulse Oximetry 96 97 Oxygen Delivery Method Oxygen Flow Rate 10/02/22 18:01 10/02/22 18:30 Temperature 97.1 F L Pulse Rate 66 63 Respiratory Rate 24 17 Blood Pressure 151/98 H Pulse Oximetry 100 96 Oxygen Delivery Method Oxygen Flow Rate 0 Oxygen Delivery Method Room Air Oxygen Flow Rate 0 Narrative Exam Narrative: General: Patient is a well-developed, well-nourished fit elderly male, in no distress at this time. HEENT: Normocephalic, atraumatic, extraocular muscles intact, oral pharynx is clear and mucous membranes are moist. Neck is supple and symmetric, trachea is midline, no adenopathy, no thyroid enlargement, nontender, no masses palpated. Negative for JVD Chest: Normal AP diameter and contour without kyphoscoliosis, Equal chest rise without nasal flaring, retractions, tachypneic or labored breathing. Lungs: Auscultation of all lung fonseca are clear without adventitious sounds, wheezes, rhonchi, or rales. Cardio: Bradycardic regular rate and rhythm without murmur, rubs, or gallops, no carotid bruit, no cardiac pulsations present. Abdomen: Soft distended nontender, negative for organomegaly, or masses. Bowel sounds are present in all 4 quadrants without guarding or rebound, no CVA tenderness. Musculoskeletal: Muscle strength and tone are equal, no deformity, crepitus, effusions, cyanosis, clubbing present. Left lower extremity +2 edema, nonpitting. Full range of motion intact radial and pedal pulses are normal. Skin: Warm dry and intact without rashes, ulcerations or petechiae. Neuro: Alert and orientated x3, moves all extremities, sensation to touch intact, no gross deficits noted of cranial nerves. Psych: Patient has a well-kept appearance, appropriate affect, mental status attitude thought context and judgment are appropriate for age. Objective Labs 10/02/22 14:49 10/02/22 14:49 Labs: Laboratory Results - last 24 hr 10/02/22 10/02/22 10/02/22 14:49 14:49 14:49 WBC 4.5 RBC 4.95 Hgb 13.3 L Hct 40.1 L MCV 81.0 MCH 26.9 MCHC 33.2 RDW 15.5 H Plt Count 173 Neut % (Auto) 54.0 Lymph % (Auto) 28.2 Elbert % (Auto) 10.6 Eos % (Auto) 6.2 H Baso % (Auto) 1.0 Neut # (Auto) 2400 Lymph # (Auto) 1300 Elbert # (Auto) 500 Eos # (Auto) 300 Baso # (Auto) 0 PT 13.1 H INR 1.1 Sodium 135 L Potassium 4.4 Chloride 106 Carbon Dioxide 23 BUN 29 H Creatinine 1.09 Estimated GFR > 60 BUN/Creatinine Ratio 26.6 H Glucose 102 Lactate Calcium 8.9 Total Bilirubin 0.4 AST 30 ALT 43 Alkaline Phosphatase 139 H Troponin I 0.033 NT-Pro-B Natriuret Pep 3510 H Total Protein 6.2 L Albumin 3.8 Globulin 2.4 Albumin/Globulin Ratio 1.6 10/02/22 10/02/22 14:49 16:45 WBC RBC Hgb Hct MCV MCH MCHC RDW Plt Count Neut % (Auto) Lymph % (Auto) Elbert % (Auto) Eos % (Auto) Baso % (Auto) Neut # (Auto) Lymph # (Auto) Elbert # (Auto) Eos # (Auto) Baso # (Auto) PT INR Sodium Potassium Chloride Carbon Dioxide BUN Creatinine Estimated GFR BUN/Creatinine Ratio Glucose Lactate 1.2 Calcium Total Bilirubin AST ALT Alkaline Phosphatase Troponin I 0.036 H NT-Pro-B Natriuret Pep Total Protein Albumin Globulin Albumin/Globulin Ratio Assessment & Plan Assessment & Plan narrative: Demetri Childs is a delightful fit 86-year-old male with a past medical history of CKD stage IIIB, prostate cancer, and thoracic aortic aneurysm without rupture who takes no daily medications, presented to the ED after a week of exertional dyspnea & tachycardia. Patient be admitted for gentle diuresis, echo, and oral metoprolol as patient is rate controlled, atrial fibrillation with RVR, myocardial injury risk stratification. Atrial fibrillation with RVR, acute, new onset, present on admission * a week of exertional dyspnea & tachycardia (HR in the 140s) * Cardioverted in ED * Continue on telemedicine * Eliquis, metoprolol 12.5 BID- monitor closely as patient is now bradycardic HR 63-which he states is his norm. * Echo ordered for tomorrow * ED consulted Dr. Santiago Maldonado Cardiology * Appointment scheduled with Dr. Henderson October/2022 * Potassium 4.4, Mag ordered * PT/OT ordered Myocardial injury, troponin greater than 99th percentile, acute, present on admission * Likely demand ischemia secondary to atrial fibrillation with RVR. * Initial troponin 0.036 repeat 0.033.-will trend, patient is asymptomatic and stable. * on Eliquis CKD stage IIIB, chronic, present on admission * BUN 29, creatinine 1.09, GFR>60. Last BUN 37 * Avoid nephrotoxic medications, monitor chem w/ diuresis History of prostate cancer, TURP, chronic, present on admission * Patient has abdominal distention soft nontender * Bladder scans as needed to check postvoid residual * Urine culture Lower extremity edema, acute on chronic, present on admission * Left 2+ nonpitting edema * Patient appears euvolemic * BNP 3510-do not appreciate CHF-echo tomorrow for rule out * Lasix 20 mg q.day Thoracic aortic aneurysm without rupture, chronic, present on admission * Stable, managed by Cardiology Overweight, severe, acute on chronic, present on admission * BMI 29.7 * dietary consult ordered regarding nutritional education and information for dietary, lifestyle, exercise, and weight changes. * the patient is at much higher risk for medical and surgical complications due to obesity as it relates to chronic illnesses:, and acute illness. The patient's obesity increases the difficulty and complexity of medical and/or surgical interventions, management and increases the chances of poor outcome such as morbidity and mortality as well as impaired wound healing. Code status: Full Surrogate decision maker: Spouse Cinthya DVT/VTE prophylaxis: Eliquis and SCD Disposition: Patient admitted for observation to monitor troponins which are now trending down, gentle diuresis, risk stratification and echo tomorrow, expected length of stay not to exceed 2 midnights. I have utilized all available immediate resources to obtain, update, or review the patient's current medications. I confirmed that the patient's advanced care plan is present, Code status is documented and/or surrogate decision maker is listed in the patient's medical record. I have personally reviewed patient's chart notes from PCP, specialists, diagnostic imaging, and laboratory results.
[2022-10-02] MEDS: SENNOSIDES 8.6 MG TABLET 17.2 MG PO (21:51)
[2022-10-02] MEDS: METOPROLOL ER 25 MG TABLET 12.5 MG PO (21:52)
[2022-10-02 23:16] LABS: Magnesium 2.2 mg/dL (1.6-2.3)
[2022-10-02 23:28] LABS: Troponin I 0.042 ng/mL (0.01-0.034)
[2022-10-03 00:13] VITALS: BP 130/80; PULSE 65; RESP 18; TEMP 35.7; O2SAT 97
[2022-10-03 03:36] VITALS: BP 134/85; PULSE 79; RESP 18; TEMP 36; O2SAT 96
[2022-10-03 05:39] LABS: Add Manual Diff / Slide Review NO; Basophils Absolute Auto 100 /uL (0-100); Basophils Percent Auto 1.3 % (0-2); Eosinophils Absolute Auto 300 /uL (0-450); Hematocrit 39.9 % (41-53); Hemoglobin 13.2 g/dL (13.5-17.5); Lymphocytes Absolute Auto 1300 /uL (1100-4500); Lymphocytes Percent Auto 31.9 % (25-40); Mean Corpuscular HGB Conc 33.1 % (30-36); Mean Corpuscular Hemoglobin 26.4 PG (26-34); Mean Corpuscular Volume 79.9 fL (80-100); Monocytes Absolute Auto 500 /uL (0-900); Monocytes Percent Auto 12.8 % (3-14); Neutrophils Absolute Auto 2000 /uL (1500-7000); Platelet Count 170 X10^3/uL (150-400); Red Blood Cell Count 4.99 X10^6/uL (4.5-5.9); White Blood Cell Count 4.2 X10^3/uL (4.5-11.0)
[2022-10-03 05:50] LABS: Alanine Aminotransferase 40 IU/L (<50); Albumin 3.5 g/dL (3.5-5.0); Albumin Globulin Ratio 1.4 (1.0-2.8); Alkaline Phosphatase 106 U/L (38-126); Aspartate Aminotransferase 26 IU/L (17-59); Bilirubin Total 0.8 mg/dL (0.2-1.3); Blood Urea Nitrogen 29 mg/dL (9-20); Calcium 8.7 mg/dL (8.4-10.2); Carbon Dioxide 28 mmol/L (22-32); Chloride 102 mmol/L (98-107); Cholesterol 144 mg/dL (140-199); Estimated Glomerular Filt Rate 56 mL/min (>60); Globulin 2.5 g/dL (1.7-4.1); Glucose 89 mg/dL (80-110); HDL Cholesterol 65 mg/dL (40-60); HEMOLYSIS < 15 (0-50); LDL Cholesterol Calculated 65 mg/dL (<100); Magnesium 2.2 mg/dL (1.6-2.3); Potassium 4.1 mmol/L (3.4-5.1); Sodium 135 mmol/L (137-145); Triglycerides 69 mg/dL (35-150)
[2022-10-03 06:15] LABS: TSH w/ Reflex to FT4 2.26 uIU/mL (0.47-4.68)
[2022-10-03 06:53] LABS: Troponin I 0.049 ng/mL (0.01-0.034)
[2022-10-03 08:00] VITALS: BP 121/88; PULSE 72; RESP 17; TEMP 36.7; O2SAT 97
--- NOTE | 2022-10-03 08:55 | DI.ECHO.S_ITS ---
[facility] +---------+ Hospital +---------+ : : [address] : : : : [place] : : : : [id number] : : : : Phone: [phone]+ Echocardiogram Report + + :Name: STEPHENIE KHAN Study Date: 10/03/2022 Height: 73 in : :[facility] ReadingLocation: Weight: 224 lb : : Gender: Male BSA: 2.3 m2 : :: 1935 Age: 86 yrs BP: 121/88 mmHg: :Reason For Study: ATRIAL FIBRILLATION : :Ordering Physician: KIKO, : :STEPHENIE MCGOWAN Performed By: Virginia De León : :Referring: STEPHENIE HOOVER : + + Interpretation Summary 1) Moderately to severely increased left ventricular thickness (concentric) with normal size, normal wall motion, and normal systolic function (EF 60- 65%). 2) The right ventricle appears to be hypertrophied. Normal right ventricular size with mildly reduced function. 3) The left atrium is severely dilated. The right atrium is moderately dilated. 4) There is mild aortic regurgitation. 5) There is mild mitral regurgitation. 6) There is a small left-sided pleural effusion. 7) The ascending aorta is severely enlarged at 5.0cm. 8) Compared to the Echo done 08/06/2019, pleural effusion is present on this study. Consider cardiac amyloidosis in the differential for LVH. Procedure: A two-dimensional transthoracic echocardiogram with color flow and Doppler was performed. The study quality was technically adequate. Comparison is made with the echocardiogram of 08/06/2019. The patient was in atrial fibrillation/ Flutter with heart rates between 56-73 bpm during the exam. Left Ventricle: The left ventricle is normal in size. There is moderate- severe concentric left ventricular hypertrophy. Proximal septal thickening is noted. The ejection fraction is estimated to be 60-65%. Left ventricular systolic function appears normal without focal wall motion abnormalities. Diastolic function could not be accurately assessed due to atrial fibrillation. Right Ventricle: The right ventricle is normal size. The right ventricle appears to be hypertrophied. Right ventricular systolic function is mildly reduced. Atria: The left atrium is severely dilated. The right atrium is moderately dilated. There is no Doppler evidence for an interatrial shunt. Mitral Valve: The mitral valve leaflets appear mildly thickened, but open well. There is mild mitral regurgitation. Aortic Valve: The aortic valve is trileaflet. The aortic valve opens well. The aortic valve is slightly calcified. There is no aortic valve stenosis. There is mild aortic regurgitation. Tricuspid Valve: The tricuspid valve is normal in structure and function. There is mild tricuspid regurgitation. The right ventricular systolic pressure is estimated to be at least 41 mmHg based on an estimated right atrial pressure of 8 mm Hg. Pulmonic Valve: The pulmonic valve leaflets are thin and pliable; valve motion is normal. There is a trace or physiologic amount of pulmonic regurgitation. Great Vessels: The aortic root is mildly dilated. The ascending aorta is severely enlarged. The aortic arch is mildly enlarged. The IVC is dilated (diameter is greater than 2.1 cm) yet it collapses greater than 50% with a sniff. This suggests a right atrial pressure of 8 mm Hg. Pericardium/ Pleura There is no pericardial effusion. There is a small left- sided pleural effusion. MMode/2D Measurements & Calculations LVIDd: 4.5 cm LVOT diam: 2.2 cm LVIDs: 2.9 cm Ao root diam: 4.4 cm FS: 34.8 % asc Aorta Diam: 5.0 cm IVSd: 1.8 cm Ao Arch Diam (Prox Trans): 3.5 cm LVPWd: 1.6 cm LV angel. diameter/BSA (cm/m^2): 2.0 LV sys. diameter/BSA (cm/m^2): 1.3 LA A2 area: 39.9 cm2 RA long axis: 7.2 cm LA A4 area: 36.0 cm2 RA area: 28.9 cm2 LA length (vol): 7.4 cm RA vol: 99.1 ml LA vol: 165.0 ml RA : 43.9 ml/m2 LA vol index: 73.1 ml/m2 IVC diam: 2.4 cm RVD1 (basal): 3.6 cm RVD2 (mid): 2.7 cm TAPSE: 1.2 cm Doppler Measurements & Calculations Ao V2 max: 145.2 cm/sec LVOT Max Ziggy: 129.8 cm/sec Ao V2 mean: 110.7 cm/sec LV V1 max P.7 mmHg Ao max P.4 mmHg LV V1 VTI: 24.0 cm Ao mean P.3 mmHg KYREE(I,D): 3.4 cm2 Ao V2 VTI: 27.8 cm KYREE(V,D): 3.5 cm2 sev ratio: 0.86 KYREE indexed to BSA (cm^2/m^2): 1.5 MV E max ziggy: 77.1 cm/sec TR max ziggy: 286.3 cm/sec MV A max ziggy: 2.4 cm/sec TR max P.8 mmHg MV E/A: 32.4 PA V2 max: 80.4 cm/sec Med Peak E' Ziggy: 5.1 cm/sec PA V2 mean: 53.9 cm/sec E/E' med: 15.1 PA mean P.3 mmHg Lat Peak E' Ziggy: 9.7 cm/sec PA pr(Accel): 39.6 mmHg E/E' lat: 8.0 E/e' average: 11.6 MV dec time: 0.14 sec SV(LVOT): 93.7 ml Reading Physician:12:11 PM
[2022-10-03 09:03] VITALS: BP 121/88; PULSE 72
[2022-10-03] MEDS: METOPROLOL ER 25 MG TABLET 12.5 MG PO (09:03)
[2022-10-03] MEDS: FUROSEMIDE 20 MG TABLET PO (09:03)
[2022-10-03] MEDS: APIXABAN 5 MG TABLET PO (09:04)
--- NOTE | 2022-10-03 10:39 | CM.DANOTE ---
Initial Discharge Assessment Note: Case reviewed, met with patient. Introduced self and role. Payer: [employer] PCP: Diego Chu 86 year old male admitted yesterday with Afib with RVR, new dx, heart rate in 140s in ED, demand ischemia. Monitoring troponins. Some sx CHF. Patient lives on [address] [facility] [address] with his spouse who is in room with patient. He is independent in his ADLs and drives. Plan: Discharge when medically cleared; spouse to transport. Will/may need [facility] priority board. 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 Yes Advance Directives on File No: at home History Provided By Patient Prior Living Arrangements House Household Members spouse Type of transporation used prior to Drives own vehicle admit Independent with ADL's Yes Is patient alert and oriented? Yes Needs Assistance With Home Chores / Shopping Caregiver for Another No Discharge Plan Home Transportation Arrangement Spouse to transport. Lives on [facility] [address]. Referrals Initiated None needed Review Status In Process Next Review Type Continued Stay Review
[2022-10-03 10:53] LABS: Troponin I 0.039 ng/mL (0.01-0.034)
[2022-10-03 12:00] VITALS: BP 122/79; PULSE 78; RESP 17; TEMP 36.6; O2SAT 97; O2SAT 98
--- NOTE | 2022-10-03 13:36 | PM.DS.1 ---
History of Present Illness History of Present Illness Date Patient Seen: 10/03/22 Time Patient Seen: 13:37 Chief complaint: New Afib RVR Narrative: Per admitting provider, Demetri Childs is a delightful fit 86-year-old male with a past medical history of CKD stage IIIB, prostate cancer, and thoracic aortic aneurysm without rupture who takes no daily medications, presented to the ED after a week of exertional dyspnea with tachycardia (HR in the 140s). Patient was found to be in AFib RVR 140s in the ED. patient was placed on drip for rate control in the ED cardioverted. Initial troponin 0.[address] Romero consulted Dr. Santiago Maldonado Cardiology who recommended the patient be admitted for gentle diuresis, echo, and oral metoprolol as patient is rate controlled. In ED following cardioversion temp 97.1?, 151/98, 63, 17, 97% on room air. Patient denies any cardiac history, patient's brother of a heart attack no other known family history. Patient had been scheduled by PCP for outpatient echo/stress test and appointment with Dr. Henderson in October. On admit patient denies chest pain, palpitations and tachycardia have resolved, shortness in breath, headache, changes in vision, difficulty swallowing, speech impairment, weakness, numbness, tingling, difficulty with ambulation, recent falls, head injury, LOC, fever, body aches, chills, cough, recent exposure to illness, abdominal pain, nausea, vomiting, urinary incontinence/retention, dysuria, frequency, urgency, hematuria, bowel changes, constipation, incontinence, melena, rashes, recent changes to medication, illness, injury, or trauma. On admit patient is stable, asymptomatic, rate controlled sinus rate of 63. Patient's lab findings were predominantly unremarkable with the exception of BUN of 29, previous 37. Alk-phos 139 previous 80, elevated troponin 0.036 which is now trending down 0.033. BNP 3510 chest x-ray small pleural effusion. Lactate is normal, In ED EKG I personally reviewed atrial fibrillation rate 52 with slow ventricular response and ventricular escape complexes nonspecific T-wave changes. Patient admitted for atrial fibrillation with RVR, myocardial injury (demand ischemia). Patient admitted for atrial fibrillation with RVR, myocardial injury risk stratification. Discharge Providers Provider Date of admission: 10/02/22 17:56 Discharge Date: 10/03/22 Primary care physician: Diego Chu MD Consults: 10/02/22 21:29 Consult to Dietitian, Adult Routine Comment: Reason For Exam: Afib, BMI 29.7 Discharge provider: Demetri Jasso DO Summary Hospital Course Discharge Diagnosis: Atrial fibrillation with RVR, acute, new onset, present on admission with acute diastolic heart failure. Myocardial injury, troponin greater than 99th percentile, acute, present on admission CKD stage IIIB, chronic, present on admission History of prostate cancer, TURP, chronic, present on admission Lower extremity edema, acute on chronic, present on admission Thoracic aortic aneurysm without rupture, chronic, present on admission Overweight, severe, acute on chronic, present on admission Hospital Course: Demetri Childs is a delightful fit 86-year-old male with a past medical history of CKD stage IIIB, prostate cancer, and thoracic aortic aneurysm without rupture who takes no daily medications, presented to the ED after a week of exertional dyspnea & tachycardia. Patient be admitted for gentle diuresis, echo, and oral metoprolol as patient is rate controlled,? atrial fibrillation with RVR. Troponins did rise until early the following afternoon but then downtrended, this was likely elevated in the setting of RVR and CKD. Echocardiogram showed LVH with normal EF and a small L pleural effusion. He was not hypoxic on room air. After troponin downtrend, he was discharged home on metoprolol for rate/rhythm control and anticoagulation with atrial fibrillation. Given congestive heart failure and ongoing mild symptoms, he was also discharged on oral furosemide though once symptoms are resolved recommend to consider stopping this medication. Echocardiogram read suggests that cardiac amyloid should be considered in the differential, and also that his aortic diameter is increased at 5.0 cm. Time Spent with Patient Time spent: Greater than 30 minutes Exam Vital Signs (past 8 hours): - 10/03/22 08:00 10/03/22 08:00 10/03/22 09:03 Temperature 98.1 F Pulse Rate 72 72 Respiratory Rate 17 Blood Pressure 121/88 121/88 Pulse Oximetry 97 97 Oxygen Delivery Method Room Air Oxygen Flow Rate 0 0 10/03/22 12:00 Temperature Pulse Rate Respiratory Rate Blood Pressure Pulse Oximetry 97 Oxygen Delivery Method Room Air Oxygen Flow Rate 0 Oxygen Delivery Method Room Air Oxygen Flow Rate 0 Narrative Exam Narrative: General: Patient is a well-developed, well-nourished fit elderly male, in no distress at this time. HEENT: Normocephalic, atraumatic, extraocular muscles intact, oral pharynx is clear and mucous membranes are moist. Neck is supple and symmetric, trachea is midline, no adenopathy, no thyroid enlargement, nontender, no masses palpated. Negative for JVD Chest: Normal AP diameter and contour without kyphoscoliosis, Equal chest rise without nasal flaring, retractions, tachypneic or labored breathing. Lungs: Auscultation of all lung fonseca are clear without adventitious sounds, wheezes, rhonchi, or rales. Cardio: Bradycardic regular rate and rhythm without murmur, rubs, or gallops, no carotid bruit, no cardiac pulsations present. Abdomen: Soft distended nontender, negative for organomegaly, or masses. Bowel sounds are present in all 4 quadrants without guarding or rebound, no CVA tenderness. Musculoskeletal: Muscle strength and tone are equal, no deformity, crepitus, effusions, cyanosis, clubbing present. Left lower extremity +2 edema, nonpitting. Full range of motion intact radial and pedal pulses are normal. Skin: Warm dry and intact without rashes, ulcerations or petechiae. Neuro: Alert and orientated x3, moves all extremities, sensation to touch intact, no gross deficits noted of cranial nerves. Psych: Patient has a well-kept appearance, appropriate affect, mental status attitude thought context and judgment are appropriate for age. Objective Labs 10/03/22 05:19 10/03/22 05:19 Labs: Laboratory Results - last 24 hr 10/02/22 10/02/22 10/02/22 14:49 14:49 14:49 WBC 4.5 RBC 4.95 Hgb 13.3 L Hct 40.1 L MCV 81.0 MCH 26.9 MCHC 33.2 RDW 15.5 H Plt Count 173 Neut % (Auto) 54.0 Lymph % (Auto) 28.2 [place] % (Auto) 10.6 Eos % (Auto) 6.2 H Baso % (Auto) 1.0 Neut # (Auto) 2400 Lymph # (Auto) 1300 [place] # (Auto) 500 Eos # (Auto) 300 Baso # (Auto) 0 PT 13.1 H INR 1.1 Sodium 135 L Potassium 4.4 Chloride 106 Carbon Dioxide 23 BUN 29 H Creatinine 1.09 Estimated GFR > 60 BUN/Creatinine Ratio 26.6 H Glucose 102 Lactate Calcium 8.9 Magnesium Total Bilirubin 0.4 AST 30 ALT 43 Alkaline Phosphatase 139 H Troponin I 0.033 NT-Pro-B Natriuret Pep 3510 H Total Protein 6.2 L Albumin 3.8 Globulin 2.4 Albumin/Globulin Ratio 1.6 Triglycerides Cholesterol LDL Cholesterol, Calc HDL Cholesterol TSH 10/02/22 10/02/22 10/02/22 14:49 16:45 22:54 WBC RBC Hgb Hct MCV MCH MCHC RDW Plt Count Neut % (Auto) Lymph % (Auto) [place] % (Auto) Eos % (Auto) Baso % (Auto) Neut # (Auto) Lymph # (Auto) [place] # (Auto) Eos # (Auto) Baso # (Auto) PT INR Sodium Potassium Chloride Carbon Dioxide BUN Creatinine Estimated GFR BUN/Creatinine Ratio Glucose Lactate 1.2 Calcium Magnesium Total Bilirubin AST ALT Alkaline Phosphatase Troponin I 0.036 H 0.042 H NT-Pro-B Natriuret Pep Total Protein Albumin Globulin Albumin/Globulin Ratio Triglycerides Cholesterol LDL Cholesterol, Calc HDL Cholesterol TSH 10/02/22 10/03/22 10/03/22 22:54 05:19 05:19 WBC 4.2 L RBC 4.99 Hgb 13.2 L Hct 39.9 L MCV 79.9 L MCH 26.4 MCHC 33.1 RDW 15.0 H Plt Count 170 Neut % (Auto) 47.0 L Lymph % (Auto) 31.9 [place] % (Auto) 12.8 Eos % (Auto) 7.0 H Baso % (Auto) 1.3 Neut # (Auto) 2000 Lymph # (Auto) 1300 [place] # (Auto) 500 Eos # (Auto) 300 Baso # (Auto) 100 PT INR Sodium 135 L Potassium 4.1 Chloride 102 Carbon Dioxide 28 BUN 29 H Creatinine 1.26 H Estimated GFR 56 L BUN/Creatinine Ratio 23.0 H Glucose 89 Lactate Calcium 8.7 Magnesium 2.2 2.2 Total Bilirubin 0.8 AST 26 ALT 40 Alkaline Phosphatase 106 Troponin I NT-Pro-B Natriuret Pep Total Protein 6.0 L Albumin 3.5 Globulin 2.5 Albumin/Globulin Ratio 1.4 Triglycerides 69 Cholesterol 144 LDL Cholesterol, Calc 65 HDL Cholesterol 65 H TSH 10/03/22 10/03/22 10/03/22 05:19 05:19 11:00 WBC RBC Hgb Hct MCV MCH MCHC RDW Plt Count Neut % (Auto) Lymph % (Auto) [place] % (Auto) Eos % (Auto) Baso % (Auto) Neut # (Auto) Lymph # (Auto) [place] # (Auto) Eos # (Auto) Baso # (Auto) PT INR Sodium Potassium Chloride Carbon Dioxide BUN Creatinine Estimated GFR BUN/Creatinine Ratio Glucose Lactate Calcium Magnesium Total Bilirubin AST ALT Alkaline Phosphatase Troponin I 0.049 H 0.039 H NT-Pro-B Natriuret Pep Total Protein Albumin Globulin Albumin/Globulin Ratio Triglycerides Cholesterol LDL Cholesterol, Calc HDL Cholesterol TSH 2.26 [facility] Medical History Calcific tendinitis, left upper arm Other specified arthritis, left elbow Prostate cancer Thoracic aortic aneurysm Surgical History (Updated 10/02/22 @ 21:11 by GABRIELLA Townsend-SHANNAN) History of hip surgery History of right knee surgery History of transurethral resection of prostate Family History (Updated 10/02/22 @ 21:12 by GABRIELLA Townsend-SHANNAN) Brother Heart attack Mother Macular degeneration Social History household members: spouse Smoking Status: Never smoker Discharge Plan Discharge Plan Patient Disposition: Home Provider Discharge Comment: You were admitted to the hospital with atrial fibrillation and shortness of breath. This improved with some fluid removal and a medication to slow your heart rate. Please continue these medications, continue plan for stress testing in early October, and follow up with your PCP for further medication adjustments moving forward and for continued refills. Discharge orders & Medications Prescriptions: New Eliquis 5 mg Tablet 5 mg PO BID 30 Days Qty: 60 0RF furosemide 20 mg Tablet 20 mg PO DAILY 30 Days Qty: 30 0RF metoprolol succinate 25 mg Tablet Extended Release 24 Hr 12.5 mg PO BID 30 Days Qty: 30 0RF Follow up/Referrals: Diego Chu MD [Primary Care Provider] - Diet/Activity/Treatments Diet: Diet as Tolerated and Regular Activity: As tolerated, no restrictions Visit Report/Discharge Packet Instructions: DI for Atrial Fibrillation, Furosemide Stand Alone Forms: Patient Portal/API, Stroke Signs & Symptoms Discharge Data Primary Care Provider: Diego Chu Attending Provider: Demetri Jasso Admit Date/Time: 10/02/22 17:56 Discharges patient from system. Discharge Date/Time: 10/03/22 14:38
[2022-10-04 11:16] LABS: x Labcorp Estim. Avg Glu (eAG) 117 mg/dL (.); x Labcorp Hemoglobin A1c 5.7 % (4.8-5.6)
== END 2022-10-03 14:38 | disposition home or self-care (01) ==
LOC: ED 17:49 → AC 17:57
PROVIDERS: Nurse Practitioner Family; Admitting Provider Internal Medicine; Emergency Provider Emergency Medicine; PCP Family Medicine; Referring Provider Emergency Medicine; Visit Provider Internal Medicine
DX: I48.20 Chronic atrial fibrillation, unspecified (principal); I5A Non-ischemic myocardial injury (non-traumatic); E87.70 Fluid overload, unspecified; R60.0 Localized edema; N18.32 Chronic kidney disease, stage 3b; I71.20 Thoracic aortic aneurysm, without rupture, unspecified; E66.3 Overweight; Z68.29 Body mass index [BMI] 29.0-29.9, adult
CPT/HCPCS: 36415; 71045; 80053; 80061; 83036; 83605; 83735; 83880; 84443; 84484; 85025; 85610; 87086; 93005; 93306; 96374; 99284; G0378; J1940

== ENCOUNTER → 2022-11-21 13:55 | Outpatient (CLI) | payer MEDICARE, OTHER, SELFPAY ==
[2022-11-20 14:27] VITALS: BMI 29.6
--- NOTE | 2022-11-21 13:59 | DI.RAD.S_ITS ---
PROCEDURE: XR FOREARM RT 2V INDICATIONS: Right wrist swelling and pain TECHNIQUE: 2 views of the forearm were acquired. COMPARISON: [facility], CR, XR WRIST RT MIN 3V, 11/21/2022, 14:16. FINDINGS: Bones: No acute fractures or dislocations. No suspicious bony lesions. Severe right radiocarpal joint osteoarthritis. Soft tissues: No suspicious soft tissue calcifications or masses. IMPRESSION: Severe right radiocarpal joint osteoarthritis. Dictated by: Shelby Briggs MD, PhD on 11/21/2022 at 15:00 Approved by: Shelby Briggs MD, PhD on 11/21/2022 at 15:01
--- NOTE | 2022-11-21 13:59 | DI.US.S_ITS ---
PROCEDURE: US PERIPH VENOUS LOW EXTREM LT INDICATIONS: PAIN TECHNIQUE: Real-time imaging, as well as color and pulse Doppler interrogation, were performed of the lower extremity deep veins from the inguinal ligament to the popliteal fossa, with documentation of the visualized calf veins. COMPARISON: None. FINDINGS: The common femoral, femoral, popliteal, and the visualized calf veins are normally compressible, and free of intraluminal thrombus. Color and pulse Doppler demonstrate normal phasic intraluminal flow. There is normal augmentation response to distal compression maneuver. 6.9 x 1.4 x 5.5 centimeter left popliteal cyst. IMPRESSION: No findings of lower extremity deep venous thrombosis. Dictated by: Shelby Briggs MD, PhD on 11/21/2022 at 14:38 Approved by: Shelby Briggs MD, PhD on 11/21/2022 at 14:38
--- NOTE | 2022-11-21 13:59 | DI.RAD.S_ITS ---
PROCEDURE: XR WRIST RT MIN 3V INDICATIONS: Right wrist swelling and pain TECHNIQUE: 4 views of the wrist were acquired. COMPARISON: None. FINDINGS: Bones: No fractures or dislocations. Severe right radiocarpal, distal radial ulnar joint osteoarthritis. Moderate 1st CMC and 1st MCP joint osteoarthritis. There is widening of the scapholunate interval concerning for ligamentous injury. Scaphoid view: Scaphoid is intact. Soft tissues: No suspicious soft tissue calcifications. IMPRESSION: Osteoarthritis. Widening of the scapholunate interval concerning for scapholunate ligament injury. Recommend MRI of the wrist for additional evaluation. Dictated by: Shelby Briggs MD, PhD on 11/21/2022 at 15:01 Approved by: Shelby Briggs MD, PhD on 11/21/2022 at 15:03
[2022-11-21 15:15] LABS: Add Manual Diff / Slide Review NO; Basophils Absolute Auto 0 /uL (0-100); Basophils Percent Auto 0.9 % (0-2); Eosinophils Absolute Auto 200 /uL (0-450); Eosinophils Percent Auto 3.1 % (2-4); Hematocrit 38.7 % (41-53); Hemoglobin 12.8 g/dL (13.5-17.5); Lymphocytes Absolute Auto 1300 /uL (1100-4500); Lymphocytes Percent Auto 23.9 % (25-40); Mean Corpuscular Hemoglobin 26.4 PG (26-34); Monocytes Absolute Auto 900 /uL (0-900); Monocytes Percent Auto 16.6 % (3-14); Neutrophils Absolute Auto 2900 /uL (1500-7000); Neutrophils Percent Auto 55.5 % (50-75); Platelet Count 188 X10^3/uL (150-400); Red Blood Cell Count 4.83 X10^6/uL (4.5-5.9); Red Cell Distribution Width 15.2 % (11.6-14.8); White Blood Cell Count 5.2 X10^3/uL (4.5-11.0)
[2022-11-21 15:24] LABS: D Dimer 1366 ng/ml (<500)
[2022-11-21 15:30] LABS: Alanine Aminotransferase 21 IU/L (<50); Albumin 3.7 g/dL (3.5-5.0); Albumin Globulin Ratio 1.5 (1.0-2.8); Alkaline Phosphatase 119 U/L (38-126); Aspartate Aminotransferase 21 IU/L (17-59); BUN Creatinine Ratio 21.1 (6-22); Bilirubin Total 0.6 mg/dL (0.2-1.3); Blood Urea Nitrogen 26 mg/dL (9-20); Calcium 8.9 mg/dL (8.4-10.2); Carbon Dioxide 29 mmol/L (22-32); Chloride 99 mmol/L (98-107); Estimated Glomerular Filt Rate 57 mL/min (>60); Globulin 2.5 g/dL (1.7-4.1); Glucose 102 mg/dL (80-110); HEMOLYSIS < 15 (0-50); Potassium 4.3 mmol/L (3.4-5.1); Sodium 133 mmol/L (137-145); Total Protein 6.2 g/dL (6.3-8.2)
[2022-11-21 15:38] LABS: NT-proBNP (BNP-Adult 18+) 4980 pg/mL (<450)
== END ==
PROVIDERS: PCP Family Medicine; Referring Provider Family Medicine; Visit Provider Family Medicine
DX: M19.031 Primary osteoarthritis, right wrist (principal); M18.11 Unilateral primary osteoarthritis of first carpometacarpal joint, right hand; R06.02 Shortness of breath; M79.89 Other specified soft tissue disorders; I50.9 Heart failure, unspecified; M25.531 Pain in right wrist
CPT/HCPCS: 36415; 73090; 73110; 80053; 83880; 84550; 85025; 85379; 93971

== ENCOUNTER 2022-11-21 15:18 | Emergency (ER) | payer MEDICARE, OTHER, SELFPAY ==
[2022-11-20 14:27] VITALS: BMI 29.6
[2022-11-21 15:28] VITALS: BP 107/77; PULSE 57; RESP 18; TEMP 36.7; O2SAT 99; BMI 29.0
--- NOTE | 2022-11-21 15:46 | DI.CT.S_ITS ---
PROCEDURE: CT ANGIO CHEST PE PROTOCOL INDICATIONS: swelling right arm, chest pressure TECHNIQUE: After the administration of intravenous contrast, 2 mm thick sections acquired from the pulmonary apices to the posterior costophrenic angles. 3-dimensional maximum intensity projection (MIP) coronal and sagittal reformats were then acquired through the thorax. For radiation dose reduction, the following was used: automated exposure control, adjustment of mA and/or kV according to patient size. COMPARISON: [facility], CT, PE STUDY (CTA CHEST), 12/24/2016, 17:34. FINDINGS: Image quality: Excellent. Pulmonary arteries: Pulmonary arteries are normal in size, and demonstrate no intraluminal filling defects to suggest central pulmonary embolism. Lungs and pleura: Lungs are clear. Small bilateral pleural effusions and compressive bibasilar atelectasis. No pulmonary edema or focal pneumonia. Central and peripheral airways are patent. Mediastinum: Cardiomegaly with enlargement of the left fake trickle, left atrium, and right atrium. Reflux of contrast into the hepatic veins is consistent with right heart failure. No mediastinal or hilar adenopathy. The ascending aorta is significantly dilated, measuring 5.5 cm on image 85/4. On the previous study, from 2017, it measured 5.1 cm in diameter. Suboptimal opacification of the aorta. Contrast enhancement is adequate for excluding a dissection. Esophagus is normal in caliber, without hiatal hernia. Bones and chest wall: No suspicious bony lesions. Ribs and thoracic spine appear intact throughout. Thyroid gland is unremarkable. No axillary or supraclavicular adenopathy. Abdomen: Visualized upper abdominal solid organs appear normal in the early arterial phase of enhancement. IMPRESSION: 1. 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 2. Ascending aortic aneurysm measuring 5.5 cm. 3. No acute pulmonary emboli. Dictated by: Chris Moreau M.D. on 11/21/2022 at 16:36 Approved by: Chris Moreau M.D. on 11/21/2022 at 16:43
--- NOTE | 2022-11-21 15:46 | DI.US.S_ITS ---
PROCEDURE: US PERIPH VENOUS UP EXTREM RT INDICATIONS: right arm swelling TECHNIQUE: Real-time imaging, as well as color and pulse Doppler interrogation, was performed of the right upper extremity deep veins from the inferior neck to the antecubital fossa. COMPARISON: [facility], CT, CT ANGIO CHEST PE PROTOCOL, 11/21/2022, 15:58. FINDINGS: The internal jugular vein, visualized portions of the subclavian vein, axillary, and brachial veins are free of intraluminal thrombus. Where physically possible, the veins are normally compressible. Color and pulse Doppler demonstrate normal intraluminal flow, with expected phasicity and pulsatility. Additional scanning of the cephalic and basilic veins of the superficial system demonstrate normal compressibility, without thrombus. Simple appearing fluid collection anterior to the right elbow measuring 6.9 x 4.2 x 1.3 cm. Right axillary cystic structure measuring 1.4 x 1.0 x 1.0 cm with small peripheral calcifications. Enlarged right axillary lymph nodes measuring 5.1 x 2.4 x 1.5 cm with 3.6 mm cortex, and 2.9 x 3.6 x 1.7 cm with a 5.7 mm cortex. IMPRESSION: 1. No evidence of right upper extremity deep venous thrombosis. 2. Simple appearing fluid collection anterior to the right elbow measuring 6.9 x 4.2 x 1.3 cm. 3. Right axillary cystic structure measuring 1.4 x 1.0 x 1.0 cm with small peripheral calcifications. 4. Enlarged right axillary lymph nodes. Dictated by: Carson Porter M.D. on 11/21/2022 at 16:54 Approved by: Carson Porter M.D. on 11/21/2022 at 16:59
[2022-11-21 16:20] LABS: Creatine Kinase 72 U/L (55-170)
[2022-11-21 16:33] LABS: Troponin I 0.036 ng/mL (0.01-0.034)
[2022-11-21 19:32] LABS: Troponin I 0.032 ng/mL (0.01-0.034)
[2022-11-21 19:44] VITALS: BP 125/71; PULSE 65; RESP 20; O2SAT 98
--- NOTE | 2022-11-21 19:51 | ED_ITS ---
HPI - Extremity Problem General Chief complaint: Extremity Problem,Nontraumatic Stated complaint: rt arm pain, swelling Time Seen by Provider: 11/21/22 19:50 Source: patient Mode of arrival: Ambulatory History of Present Illness HPI Narrative: Patient 87-year-old male history of atrial fibrillation on Eliquis, congestive heart failure, CKD stage 3, prostate cancer, known thoracic aortic aneurysm presents today with increasing right arm swelling. It has been ongoing for the past couple of days no fever, he denies any injury, any fever. No numbness numbness tingling or weakness. He had outpatient blood work which included a D-dimer which was elevated at 1366 and sent to the ED for further evaluation. He had a CT angio that was done does show increased ascending thoracic aneurysm measured at 5.5 cm. Previously on echocardiogram in 10/03/2022 was 5.0 cm. He is adamant that he denies any chest pain. He does have some shortness of breath. But denies any orthopnea or palpitations. He really he is complaining of pain in that right arm. There is no DVT upper extremity based on ultrasound or lower extremities either. He did have some mild erythema was outlined. Related Data Home Medications Medication Instructions Recorded Confirmed apixaban 5 mg tablet (Eliquis) 5 mg PO BID 11/20/22 11/20/22 furosemide 20 mg tablet 20 mg PO DAILY 11/20/22 11/20/22 metoprolol succinate 25 mg 12.5 mg PO BID 11/20/22 11/20/22 tablet,extended release 24 hr Previous Rx's Medication Instructions Recorded benzocaine 10 % mucosal gel 1 applic mucous membrane QID PRN 10/18/22 (Anbesol (benzocaine)) mouth irritation #9 grams cephalexin 500 mg capsule 500 mg PO TID #21 caps 11/21/22 hydrocodone 5 mg-acetaminophen 325 1 tab PO Q6H PRN pain #10 tabs 11/21/22 mg tablet Allergies Allergy/AdvReac Type Severity Reaction Status Date / Time No Known Drug Allergies Allergy Verified 11/20/22 15:41 Review of Systems Review of Systems ROS Unobtainable: All systems reviewed & are unremarkable except as noted in HPI and below Patient History Medical History Calcific tendinitis, left upper arm Other specified arthritis, left elbow Prostate cancer Thoracic aortic aneurysm Surgical History History of hip surgery History of right knee surgery History of transurethral resection of prostate Family History Brother Heart attack Mother Macular degeneration Social History household members: spouse Smoking Status: Never smoker Smoking Status: Never smoker alcohol intake frequency: holidays/special occasions only Substance Use Type: does not use Exam Initial Vital Signs Initial Vital Signs: Vital Signs Temperature 98.1 F 11/21/22 15:28 Pulse Rate 57 L 11/21/22 15:28 Respiratory Rate 18 11/21/22 15:28 Blood Pressure 107/77 11/21/22 15:28 Pulse Oximetry 99 11/21/22 15:28 Oxygen Delivery Method Room Air 11/21/22 15:28 GENERAL: Alert very pleasant 87-year-old male and in no acute distress. HEENT: Head atraumatic,EOMI, pupils reactive, face symmetric, moist mucous membranes CARDIOVASCULAR: Irregularly irregular no murmur RESPIRATORY: Breath sounds equal bilaterally, no wheezes rales or rhonchi. ABDOMEN: Soft, nontender. Normoactive bowel sounds all 4 quadrants. No guarding or rebound. EXTREMITIES: Normal range of motion, no clubbing or edema. Neurovascularly intact Right upper extremity significant swelling or elbow joint and forearm minimal erythema not warm to touch neurovascularly intact upper arm and shoulder are not swollen no clavicle step-off Bilateral lower extremity edema wearing compression socks NEUROLOGICAL: Alert and oriented x4.Normal gait and speech. SKIN: Warm, dry, no laceration, no petechiae, no rashes or lesions. Course Orders Ordered: ED Orders 11/21/22 21:20 ESR [Erythrocyte Sedimentation Rate] Stat Discontinued Medications Hydrocodone Bitart/Acetaminophen (Hydrocodone/Acet 5/325 Prepack) 1 bottle MISC SEEINSTR ONE Stop: 11/21/22 22:55 Last Admin: 11/21/22 23:14 Dose: 1 bottle Documented By: KH Ceftriaxone Sodium 1,000 mg/ (Sodium Chloride) 100 mls @ 200 mls/hr IV NOW ONE Stop: 11/21/22 20:37 Last Infusion: 11/21/22 21:21 Dose: 0 mls/hr Documented By: Admin: 11/21/22 20:48 Dose: 200 mls/hr Documented By: LARRY Morphine Sulfate (Morphine 2 Mg/Ml Inj) 2 mg IV NOW ONE Stop: 11/21/22 20:56 Last Admin: 11/21/22 21:11 Dose: 2 mg Documented By: LARRY Vital Signs Vital signs: Vital Signs - 8 hr 11/21/22 15:28 11/21/22 19:44 Temperature 98.1 F Pulse Rate 57 L 65 Respiratory Rate 18 20 Blood Pressure 107/77 125/71 Pulse Oximetry 99 98 Oxygen Delivery Method Room Air Room Air MDM - Extremity (Nontraumatic) Lab Data Labs: Lab Results 11/21/22 11/21/22 11/21/22 Range/Units 14:59 18:45 18:45 ESR (0-15) MM/HR Total Creatine Kinase 72 (55-170) U/L Troponin I 0.036 H 0.032 (0.01-0.034) ng/mL C-Reactive Protein 5.4 H (<1.0) mg/dL Procalcitonin (<0.5) ng/mL 11/21/22 11/21/22 Range/Units 18:45 21:20 ESR 13 (0-15) MM/HR Total Creatine Kinase (55-170) U/L Troponin I (0.01-0.034) ng/mL C-Reactive Protein (<1.0) mg/dL Procalcitonin 0.07 (<0.5) ng/mL Imaging Data US - DVT: Radiologist's Impression: PROCEDURE:? US PERIPH VENOUS LOW EXTREM LT ? INDICATIONS:? PAIN ? TECHNIQUE:? Real-time imaging, as well as color and pulse Doppler interrogation, were performed of the lower extremity deep veins from the inguinal ligament to the popliteal fossa, with documentation of the visualized calf veins.? ? COMPARISON:? None. ? FINDINGS:? The common femoral, femoral, popliteal, and the visualized calf veins are normally compressible, and free of intraluminal thrombus.? Color and pulse Doppler demonstrate normal phasic intraluminal flow.? There is normal augmentation response to distal compression maneuver. ? 6.9 x 1.4 x 5.5 centimeter left popliteal cyst.? ? ? IMPRESSION:? No findings of lower extremity deep venous thrombosis. ? ? Dictated by: Shelby Briggs MD, PhD on 11/21/2022 at 14:38 ? ? PROCEDURE:? US PERIPH VENOUS UP EXTREM RT ? INDICATIONS:? right arm swelling ? TECHNIQUE:? Real-time imaging, as well as color and pulse Doppler interrogation, was performed of the right upper extremity deep veins from the inferior neck to the antecubital fossa.? ? COMPARISON:? Formerly [facility], CT, CT ANGIO CHEST PE PROTOCOL, 11/21/2022, 15:58. ? FINDINGS:? The internal jugular vein, visualized portions of the subclavian vein, axillary, and brachial veins are free of intraluminal thrombus.? Where physically possible, the veins are normally compressible.? Color and pulse Doppler demonstrate normal intraluminal flow, with expected phasicity and pulsatility.? Additional scanning of the cephalic and basilic veins of the superficial system demonstrate normal compressibility, without thrombus.? ? Simple appearing fluid collection anterior to the right elbow measuring 6.9 x 4.2 x 1.3 cm. ? Right axillary cystic structure measuring 1.4 x 1.0 x 1.0 cm with small peripheral calcifications. ? Enlarged right axillary lymph nodes measuring 5.1 x 2.4 x 1.5 cm with 3.6 mm cortex, and 2.9 x 3.6 x 1.7 cm with a 5.7 mm cortex. ? IMPRESSION:? ? 1. No evidence of right upper extremity deep venous thrombosis. 2. Simple appearing fluid collection anterior to the right elbow measuring 6.9 x 4.2 x 1.3 cm. 3. Right axillary cystic structure measuring 1.4 x 1.0 x 1.0 cm with small peripheral calcifications. 4. Enlarged right axillary lymph nodes. ? ? Dictated by: Carson Porter M.D. on 11/21/2022 at 16:54 ? ? Approved by: Carson Porter M.D. on 11/21/2022 at 16:59 ? CT scan - chest: Radiologist's Impression: PROCEDURE:? CT ANGIO CHEST PE PROTOCOL ? INDICATIONS:? swelling right arm, chest pressure ? TECHNIQUE:? After the administration of intravenous contrast, 2 mm thick sections acquired from the pulmonary apices to the posterior costophrenic angles.? 3-dimensional maximum intensity projection (MIP) coronal and sagittal reformats were then acquired through the thorax.? For radiation dose reduction, the following was used:? automated exposure control, adjustment of mA and/or kV according to patient size.? ? COMPARISON:? Formerly [facility], CT, PE STUDY (CTA CHEST), 12/24/2016, 17:34. ? FINDINGS:? Image quality:? Excellent.? ? Pulmonary arteries:? Pulmonary arteries are normal in size, and demonstrate no intraluminal filling defects to suggest central pulmonary embolism.? ? Lungs and pleura:? Lungs are clear.? Small bilateral pleural effusions and compressive bibasilar atelectasis.? No pulmonary edema or focal pneumonia.? Central and peripheral airways are patent.? ? Mediastinum:? Cardiomegaly with enlargement of the left fake trickle, left atrium, and right atrium.? Reflux of contrast into the hepatic veins is consistent with right heart failure.? No mediastinal or hilar adenopathy.? The ascending aorta is significantly dilated, measuring 5.5 cm on image 85/4.? On the previous study, from 2016, it measured 5.1 cm in diameter.? Suboptimal opacification of the aorta.? Contrast enhancement is adequate for excluding a dissection.? Esophagus is normal in caliber, without hiatal hernia.? ? Bones and chest wall:? No suspicious bony lesions.? Ribs and thoracic spine appear intact throughout.? Thyroid gland is unremarkable.? No axillary or supraclavicular adenopathy.? ? Abdomen:? Visualized upper abdominal solid organs appear normal in the early arterial phase of enhancement.? ? IMPRESSION:? ? 1. 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 ? 2. Ascending aortic aneurysm measuring 5.5 cm. ? 3. No acute pulmonary emboli.? ? ? Dictated by: Chris Moreau M.D. on 11/21/2022 at 16:36 ? ? Extremity x-ray #1: Radiologist's Impression: PROCEDURE:? XR FOREARM RT 2V ? INDICATIONS:? Right wrist swelling and pain ? TECHNIQUE:? 2 views of the forearm were acquired.? ? COMPARISON:? Former[facility], CR, XR WRIST RT MIN 3V, 11/21/2022, 14:16. ? FINDINGS:? ? Bones:? No acute fractures or dislocations.? No suspicious bony lesions.? Severe right radiocarpal joint osteoarthritis.? ? Soft tissues:? No suspicious soft tissue calcifications or masses.? ? ? IMPRESSION:? Severe right radiocarpal joint osteoarthritis. ? Dictated by: Shelby Briggs MD, PhD on 11/21/2022 at 15:00 ? Extremity x-ray #2: Radiologist's Impression: PROCEDURE:? XR WRIST RT MIN 3V ? INDICATIONS: Right wrist swelling and pain ? TECHNIQUE:? 4 views of the wrist were acquired.? ? COMPARISON:? None. ? FINDINGS:? ? Bones:? No fractures or dislocations.? Severe right radiocarpal, distal radial ulnar joint osteoarthritis.? Moderate 1st CMC and 1st MCP joint osteoarthritis.? There is widening of the scapholunate interval concerning for ligamentous injury. ? Scaphoid view:? Scaphoid is intact. ? Soft tissues:? No suspicious soft tissue calcifications.? ? IMPRESSION:? ? Osteoarthritis. ? Widening of the scapholunate interval concerning for scapholunate ligament injury.? Recommend MRI of the wrist for additional evaluation. ? ? Dictated by: Shelby Briggs MD, PhD on 11/21/2022 at 15:01? Extremity x-ray #3: Radiologist's Impression: PROCEDURE:? XR ELBOW RT MIN 3V ? INDICATIONS:? pain swelilng ? TECHNIQUE:? 3 views of the elbow were acquired.? ? COMPARISON:? None. ? FINDINGS:? ? Bones:? No definite fractures or dislocations.? There is mild osteophytosis.? No suspicious bony lesions.? ? Soft tissues:? No elbow joint effusion.? No suspicious soft tissue calcifications.? ? ? IMPRESSION:? ? 1. No definite fracture or dislocation.? ? ? Dictated by: Rashard Cleaning M.D. on 11/21/2022 at 22:58 ? ? EX #4: Radiologist's Impression: PROCEDURE:? XR SHOULDER RT MIN 2V ? INDICATIONS:? pain ? TECHNIQUE:? 2 views of the shoulder were acquired.? ? COMPARISON:? None. ? FINDINGS:? ? Bones:? No fractures or dislocations.? There is severe glenohumeral joint degeneration with severe joint space narrowing, subchondral sclerosis, and osteophytosis.? M ild acromioclavicular joint degeneration also noted.? Visualized ribs appear intact.? ? Soft tissues:? Multiple clustered calcifications project over the scapula suggestive of joint bodies in the subcoracoid recess. ? IMPRESSION:? ? 1. No fractures or dislocation. ? 2. Severe glenohumeral joint degeneration. ? 3. Suspected clustered joint bodies in the subcoracoid recess.? ? ? Dictated by: Rashard Cleaning M.D. on 11/21/2022 at 22:58 ? ? ECG Data Interpretation: Atrial fibrillation rate [address] changes similar to previous EKG in September 2022 MDM Narrative Medical decision making narrative: Patient 87-year-old male presents today with right arm swelling ongoing for last couple of days. There is obvious swelling no evidence of DVT. Possibly mild erythema but no leukocytosis or fever to suggest infection. Does not appear to be a septic joint range of motion is limited secondary to swelling. Arthritis is noted on x-ray. No fracture identified. He is given 1 dose of Rocephin for possible cellulitis pain medication morphine which does seem to help some. CT angio ruled out pulmonary embolism despite D-dimer of 1366. Ultrasounds do not show any DVT. It is noted that he has an ascending thoracic aneurysm of 5.5 cm. Previous echocardiogram 10/03/2022 showed ascending thoracic aneurysm at 5 cm. , Vascular surgery Dr. Massey notified via nursing and transfer center patient symptoms and imaging. At this time recommends outpatient follow-up Sunday. Patient and given follow-up concerns regarding aneurysm. At this time low concern for a septic joint possible arthritis. He is having some shortness of breath BNP mildly elevated 4900 previously 3500 not requiring any oxygen no evidence of respiratory distress. Reasonable to increase Lasix at home for couple of days. Get started on antibiotics and pain meds at home. Discharge Plan Departure Patient Disposition: Home Clinical Impression: Thoracic ascending aortic aneurysm, Cellulitis of arm, right, Congestive heart failure Instructions: DI for Cellulitis -- Adult, Aortic Aneurysm Repair Activity Restrictions/Additional Instructions: *You have been diagnosed with right arm cellulitis, ascending thoracic aneurysm, mild congestive heart failure *What to do: At this time elevate and ice your right arm. Please continue to monitor. May be some cellulitis. [facility] vascular surgery will be contacting you from an unknown number. Please answer. Ask for a [facility] appointment with Dr. Massey. If you do not hear from them in 24 hours please call [phone] set up an appointment. *Continue to take medications as directed--> SENT TO RAYS Keflex 500 mg 3 times a day for 7 days [place] 1 tablet every 6 hours if needed for severe pain Increase furosemide 20 mg once daily to twice a day for 2-3 days only then resume once daily (this is to help your shortness of breath) *Follow up with your primary care provider in 2-3 days or call [phone] Follow-up with *Return to ER if you should have increasing arm pain redness fever numbness tingling weakness chest pain passing out or any new, worsening or concerning symptoms CONTROLLED SUBSTANCE DISCHARGE (Narcotoic/benzodiazepine/Flexeril/Phenergan) 1. You have been prescribed narcotic medications, it does have acetaminophen/Tylenol/paracetamol in it, DO NOT TAKE MORE THAN 4,00mg in 24 hours of Tylenol. TRAMADOL DOES NOT CONTAIN TYLENOL 2. Please understand that we cannot provide further refills of narcotics, benzodiazepines or controlled substances through the ED and her pain management will need to be through your provider. 3. While on these medications you cannot drive or operate heavy machinery. 4. You cannot sign legal documents or perform any duties such as this. 5. As long as you're taking opiate pain medications he should also be taking a stool softener such as Colace, Dulcolax, MiraLAX or prune juice, to help avoid constipation. Prescriptions: New hydrocodone-acetaminophen 5-325 mg tablet 1 tab PO Q6H PRN (Reason: pain) Qty: 10 0RF cephalexin 500 mg capsule 500 mg PO TID Qty: 21 0RF No Action metoprolol succinate 25 mg tablet extended release 24 hr 12.5 mg PO BID furosemide 20 mg tablet 20 mg PO DAILY Eliquis 5 mg tablet 5 mg PO BID Anbesol (benzocaine) 10 % gel 1 applic mucous membrane QID PRN (Reason: mouth irritation) Qty: 9 0RF Referrals: Diego Chu MD [Primary Care Provider] - Stand Alone Forms: Patient Portal/API
--- NOTE | 2022-11-21 20:02 | PC.NURSE ---
pt c/o redness and swelling to right arm was seen in the clinic and sent here to r/o blood clot. area was marked per the clinic and is slightly red and swollen, pt denies any fever, area is painful, no drainage noted and denies any injury
--- NOTE | 2022-11-21 20:36 | DI.RAD.S_ITS ---
PROCEDURE: XR ELBOW RT MIN 3V INDICATIONS: pain swelilng TECHNIQUE: 3 views of the elbow were acquired. COMPARISON: None. FINDINGS: Bones: No definite fractures or dislocations. There is mild osteophytosis. No suspicious bony lesions. Soft tissues: No elbow joint effusion. No suspicious soft tissue calcifications. IMPRESSION: 1. No definite fracture or dislocation. Dictated by: Rashard Cleaning M.D. on 11/21/2022 at 22:58 Approved by: Rashard Cleaning M.D. on 11/21/2022 at 22:58
--- NOTE | 2022-11-21 20:36 | DI.RAD.S_ITS ---
PROCEDURE: XR SHOULDER RT MIN 2V INDICATIONS: pain TECHNIQUE: 2 views of the shoulder were acquired. COMPARISON: None. FINDINGS: Bones: No fractures or dislocations. There is severe glenohumeral joint degeneration with severe joint space narrowing, subchondral sclerosis, and osteophytosis. Mild acromioclavicular joint degeneration also noted. Visualized ribs appear intact. Soft tissues: Multiple clustered calcifications project over the scapula suggestive of joint bodies in the subcoracoid recess. IMPRESSION: 1. No fractures or dislocation. 2. Severe glenohumeral joint degeneration. 3. Suspected clustered joint bodies in the subcoracoid recess. Dictated by: Rashard Cleaning M.D. on 11/21/2022 at 22:58 Approved by: Rashard Cleaning M.D. on 11/21/2022 at 22:59
[2022-11-21] MEDS: cefTRIAXone 1,000 MG in SODIUM CHLORIDE 0.9% 100 ML 200 MG IV (20:48)
[2022-11-21] MEDS: MORPHINE 2 MG/ML INJ IV (21:11)
[2022-11-21 21:12] LABS: C-Reactive Protein Quant 5.4 mg/dL (<1.0)
[2022-11-21 21:20] LABS: Procalcitonin 0.07 ng/mL (<0.5)
[2022-11-21 22:03] LABS: Erythrocyte Sedimentation Rate 13 MM/HR (0-15)
[2022-11-21] MEDS: HYDROCODONE/ACET 5/325 PREPACK 1 BOTTLE MISC (23:14)
== END 2022-11-21 23:28 | disposition home or self-care (01) ==
PROVIDERS: Emergency Medicine; Emergency Provider Emergency Medicine; PCP Family Medicine
DX: I71.40 Abdominal aortic aneurysm, without rupture, unspecified (principal); L03.113 Cellulitis of right upper limb; I50.9 Heart failure, unspecified; M19.031 Primary osteoarthritis, right wrist; M18.11 Unilateral primary osteoarthritis of first carpometacarpal joint, right hand; R06.02 Shortness of breath; M79.89 Other specified soft tissue disorders; M25.531 Pain in right wrist
CPT/HCPCS: 36415; 71275; 73030; 73080; 73090; 73110; 80053; 82550; 83880; 84145; 84484; 84550; 85025; 85379; 85651; 86140; 93005; 93010; 93971; 96365; 96375; 99284; 99285; J0696; J2270; Q9967

== ENCOUNTER 2022-11-29 09:08 | Day surgery (SDC) | payer MEDICARE, OTHER, SELFPAY ==
[2022-11-20 14:27] VITALS: BMI 29.6
[2022-11-28 07:21] VITALS: BMI 29.0
--- NOTE | 2022-11-29 | PATH_ITS ---
[facility] Accession Number: [id number] No. of containers..02 Tissue 04 Unknown Storage/container code(s) . 01 Material submitted: . PART A: lymph node - RIGHT AXILLARY, LYMPH NODE PART B: lymph node - RIGHT AXILLARY LYMPH NODE . 01 Clinical history: . HX PROSTATE CA AGENT ORANGE R/O LYMPHOMA . 01 Diagnosis: A-B LYMPH NODE, RIGHT AXILLARY: BENIGN REACTIVE LYMPH NODE, LARGELY REPLACED BY ADIPOSE TISSUE. SEE COMMENT - COMMENT: The lymph node is largely replaced by adipose tissue with mild reactive features in the lymph node remnant including mild dermatopathic lymphadenopathy, and sinus histiocytosis, clinical correlation is recommended. - MICROSCOPIC EXAMINATION: Histologic examination of the right axillary lymph node in part A and B shows similar findings. The lymph nodes are largely replaced by adipose tissue while the remainder of the lymph node has intact preserved architecture with primary and secondary follicles in the sub-capsular area. There is mild increased histiocytes with pigments in the para-cortical and sub-capsular region consistent with mild dermatopathic lymphadenopathy, additionally there is mild sinus histiocytosis is seen. No granulomas, necrosis or atypical cells are seen. - IMMUNOHISTOCHEMICAL STAINS PERFORMED ON PART A AND B WITH APPROPRIATE CONTROLS SHOW: CD3, and CD20 performed on part A3 highlight preserved T and B cell compartments, respectively. Amado keratin stain performed on part A3 and B2 is negative for malignancy. Technical Note: The immunohistochemical stains reported were performed at [facility] ([address], [facility] [address]). They were developed and their performance characteristics determined by [facility] [employer] They have not been cleared or approved by the U.S. Food and Drug Administration, although such approval is not required for analyte-specific reagents of this type. . [facility] 12/13/2022 1425 Local . 01 Electronically signed: . Vargas Madrigal MD, Pathologist NPI- [id number] . 01 Gross description: . A. Received in formalin labeled with the patient's name, , and right axillary lymph node formalin and consists of a medeiros lymph node candidate with attached adipose, measuring 2.6 x 2.0 x 1.1 cm. One edge of the specimen is flattened, possible consistent with previously incised area. The surface is inked green while the remaining external surfaces are inked blue. The fragment is serially sectioned and submitted entirely in cassettes A1-A3. B. Received in B+ fixative labeled with the patient's name, , and right axillary lymph node B+ fix and consists of a yellow to medeiros lymph node candidate measuring 2.2 x 1.7 x 1.7 cm. One surface is flattened consistent with possible previous incision area. This surface is inked orange, while the remaining external surface is inked blue. The specimen is serially sectioned and submitted entirely in cassettes B1-B4. ([id number]) /[facility] 11/30/2022 [facility] Local . 01 Pathologist provided ICD-10: R59.0 . 01 CPT . 931103, 390135, [id number], [id number] Specimen Comment: A courtesy copy of this report has been sent to [phone] Performed at: 01 [facility] [address] [place] [address], [place], [place] [id number] MD Rashard Van MD Phone: [phone]
[2022-11-29 11:27] VITALS: BP 128/88; PULSE 63; RESP 18; TEMP 35.7; O2SAT 100; BMI 29.0
[2022-11-29] MEDS: LACTATED RINGERS 1,000 ML 42 ML IV (11:35)
--- NOTE | 2022-11-29 11:52 | PM.PREOP ---
Pre-operative Note Interval Note History & Physical reviewed/Exam performed by Physician: Yes Changes to H&P: No
[2022-11-29] MEDS: CEFAZOLIN 2 GM/100 ML PREMIX 100 ML IV (12:20)
--- NOTE | 2022-11-29 12:30 | SUR.OPER ---
Supine on padded OR bed, head on pillow, arms secured on padded arm boards at <90 degrees abduction, legs uncrossed, safety belt at thigh, tape over blanket over lower legs.
[2022-11-29] MEDS: BUPIVACAINE 0.25% (PF) VIAL 30 ML INJ (13:02)
[2022-11-29 13:14] VITALS: BP 116/82; PULSE 65; RESP 16; TEMP 36.1; O2SAT 98
--- NOTE | 2022-11-29 13:16 | PM.OP.1 ---
Operative Date/Time/Diagnoses Date of procedure: 11/29/22 Time of procedure: 13:17 Pre-op diagnosis: right axillary lymphadenopathy Post-op diagnosis: same Procedure & Clinicians Procedure: Excisional biopsy of right axillary lymph node Same procedure as scheduled: Yes Indications: 87-year-old man developed acute onset of right upper extremity swelling and pain. Workup demonstrates axillary lymphadenopathy without evidence of VTE Surgeon: Raj Morillo Anesthesia Type: Local Operative Notes Findings: 4 cm lymph node within the axilla Specimen(s): other (Right axillary lymph node) Estimated Blood Loss (mL): 5 Procedure in detail: Patient was brought to the operating placed supine the table. Bilateral lower extremity compression devices. He was then prepped and draped in sterile fashion. Time-out performed. Total of 60 mL of 0.25% bupivacaine was infiltrated into the skin. An incision just below the hair bearing region of the right axilla was made. The subcutaneous tissue was divided. The axillary tissue was skeltonized bluntly between the axillary vein, the pectoralis minor the latissimus and the serratus. A 4 cm axillary node was identified. the node was dissected out and clips were used to divide the lymphatics. Specimen was passed off the field labeled axillary tissue. Hemostasis was checked. Closed in layers using Vicryl suture skin closed with Monocryl followed by application of Dermabond. Tolerated the procedure well and was transferred to recovery in stable condition. Complications: none Post-operative Condition: stable Disposition: same day surgery
[2022-11-29 13:29] VITALS: BP 110/71; PULSE 59; RESP 16; TEMP 37.2; O2SAT 98
== END 2022-11-29 13:44 | disposition home or self-care (01) ==
PROVIDERS: PCP Family Medicine; Referring Provider Surgery; Visit Provider Surgery
PROC: (CPT 38525; principal; 2022-11-29 12:15)
DX: R59.0 Localized enlarged lymph nodes (principal)
CPT/HCPCS: 38525; J0690; J1100; J2250; J2405; J3010

== ENCOUNTER → 2023-09-05 09:26 | Outpatient (CLI) | payer MEDICARE, OTHER, SELFPAY ==
[2022-11-20 14:27] VITALS: BMI 29.6
[2023-09-05 19:52] LABS: Add Manual Diff / Slide Review NO; Basophils Absolute Auto 0 /uL (0-100); Basophils Percent Auto 0.5 % (0-2); Eosinophils Absolute Auto 300 /uL (0-450); Eosinophils Percent Auto 6.6 % (2-4); Hematocrit 38.7 % (41-53); Hemoglobin 12.8 g/dL (13.5-17.5); Lymphocytes Absolute Auto 800 /uL (1100-4500); Lymphocytes Percent Auto 20.7 % (25-40); Mean Corpuscular Hemoglobin 26.8 PG (26-34); Mean Corpuscular Volume 81.1 fL (80-100); Monocytes Absolute Auto 400 /uL (0-900); Monocytes Percent Auto 11.3 % (3-14); Neutrophils Absolute Auto 2300 /uL (1500-7000); Neutrophils Percent Auto 60.9 % (50-75); Platelet Count 145 X10^3/uL (150-400); Red Blood Cell Count 4.77 X10^6/uL (4.5-5.9); White Blood Cell Count 3.8 X10^3/uL (4.5-11.0)
[2023-09-05 19:59] LABS: Alanine Aminotransferase 39 IU/L (<50); Albumin 3.7 g/dL (3.5-5.0); Albumin Globulin Ratio 1.9 (1.0-2.8); Alkaline Phosphatase 120 U/L (38-126); Aspartate Aminotransferase 54 IU/L (17-59); BUN Creatinine Ratio 25.3 (6-22); Bilirubin Total 0.7 mg/dL (0.2-1.3); Blood Urea Nitrogen 25 mg/dL (9-20); Calcium 8.7 mg/dL (8.4-10.2); Carbon Dioxide 32 mmol/L (22-32); Chloride 98 mmol/L (98-107); Creatine Kinase 113 U/L (55-170); Estimated Glomerular Filt Rate > 60 mL/min (>60); Glucose 101 mg/dL (80-110); HEMOLYSIS 15 (0-50); Potassium 4.2 mmol/L (3.4-5.1); Sodium 134 mmol/L (137-145); Total Protein 5.7 g/dL (6.3-8.2)
[2023-09-05 20:06] LABS: NT-proBNP (BNP-Adult 18+) 6030 pg/mL (<450); Troponin I 0.044 ng/mL (0.01-0.034)
== END ==
PROVIDERS: PCP Family Medicine; Visit Provider Physician Assistant Medical
DX: U07.1 COVID-19 (principal); R06.02 Shortness of breath
CPT/HCPCS: 80053; 82550; 83880; 84484; 85025

== ENCOUNTER → 2023-09-11 10:38 | Outpatient (CLI) | payer MEDICARE, OTHER, SELFPAY ==
[2022-11-20 14:27] VITALS: BMI 29.6
[2023-09-11 19:44] LABS: Add Manual Diff / Slide Review NO; Basophils Absolute Auto 0 /uL (0-100); Basophils Percent Auto 0.7 % (0-2); Eosinophils Absolute Auto 300 /uL (0-450); Eosinophils Percent Auto 5.4 % (2-4); Hematocrit 41.3 % (41-53); Hemoglobin 13.9 g/dL (13.5-17.5); Lymphocytes Absolute Auto 1100 /uL (1100-4500); Lymphocytes Percent Auto 21.7 % (25-40); Mean Corpuscular HGB Conc 33.7 % (30-36); Monocytes Absolute Auto 600 /uL (0-900); Monocytes Percent Auto 12.9 % (3-14); Neutrophils Absolute Auto 2900 /uL (1500-7000); Neutrophils Percent Auto 59.3 % (50-75); Platelet Count 293 X10^3/uL (150-400); Red Blood Cell Count 5.17 X10^6/uL (4.5-5.9); Red Cell Distribution Width 15.9 % (11.6-14.8); White Blood Cell Count 4.9 X10^3/uL (4.5-11.0)
[2023-09-11 19:45] LABS: BUN Creatinine Ratio 20.2 (6-22); Blood Urea Nitrogen 21 mg/dL (9-20); Calcium 9.1 mg/dL (8.4-10.2); Carbon Dioxide 29 mmol/L (22-32); Chloride 98 mmol/L (98-107); Cholesterol 92 mg/dL (140-199); Estimated Glomerular Filt Rate > 60 mL/min (>60); Glucose 133 mg/dL (80-110); HDL Cholesterol 54 mg/dL (40-60); HEMOLYSIS 22 (0-50); LDL Cholesterol Calculated 27 mg/dL (<100); Potassium 4.9 mmol/L (3.4-5.1); Sodium 132 mmol/L (137-145); Triglycerides 56 mg/dL (35-150)
[2023-09-11 19:58] LABS: NT-proBNP (BNP-Adult 18+) 3260 pg/mL (<450); Troponin I 0.036 ng/mL (0.01-0.034)
[2023-09-11 20:19] LABS: Prostate Specific Antigen < 0.064 ng/mL (0.10-4.00)
== END ==
PROVIDERS: PCP Family Medicine; Visit Provider Family Medicine
DX: D64.9 Anemia, unspecified (principal); R06.02 Shortness of breath; E85.4 Organ-limited amyloidosis; C61 Malignant neoplasm of prostate; I43 Cardiomyopathy in diseases classified elsewhere; I50.9 Heart failure, unspecified; N18.32 Chronic kidney disease, stage 3b; R79.89 Other specified abnormal findings of blood chemistry; U07.1 COVID-19; I48.20 Chronic atrial fibrillation, unspecified; D69.6 Thrombocytopenia, unspecified; D72.810 Lymphocytopenia
CPT/HCPCS: 80048; 80061; 83880; 84153; 84484; 85025

== ENCOUNTER → 2024-01-17 08:44 | Outpatient (CLI) | payer MEDICARE, OTHER, SELFPAY ==
[2023-11-19 10:24] VITALS: BMI 29.6
[2024-01-17 10:12] LABS: Add Manual Diff / Slide Review NO; Basophils Absolute Auto 100 /uL (0-100); Basophils Percent Auto 1.9 % (0-2); Eosinophils Absolute Auto 200 /uL (0-450); Hematocrit 39.1 % (41-53); Lymphocytes Absolute Auto 1200 /uL (1100-4500); Lymphocytes Percent Auto 21.9 % (25-40); Mean Corpuscular HGB Conc 33.2 % (30-36); Mean Corpuscular Hemoglobin 26.8 PG (26-34); Mean Corpuscular Volume 80.7 fL (80-100); Monocytes Absolute Auto 600 /uL (0-900); Monocytes Percent Auto 12.1 % (3-14); Neutrophils Absolute Auto 3200 /uL (1500-7000); Neutrophils Percent Auto 61.1 % (50-75); Platelet Count 225 X10^3/uL (150-400); Red Blood Cell Count 4.84 X10^6/uL (4.5-5.9); Red Cell Distribution Width 17.6 % (11.6-14.8); White Blood Cell Count 5.3 X10^3/uL (4.5-11.0)
[2024-01-17 10:34] LABS: Blood Urea Nitrogen 31 mg/dL (9-20); Calcium 9.2 mg/dL (8.4-10.2); Carbon Dioxide 30 mmol/L (22-32); Chloride 98 mmol/L (98-107); Estimated Glomerular Filt Rate > 60 mL/min (>60); Glucose 78 mg/dL (80-110); HEMOLYSIS < 15 (0-50); Potassium 4.2 mmol/L (3.4-5.1); Sodium 132 mmol/L (137-145)
[2024-01-17 10:45] LABS: NT-proBNP (BNP-Adult 18+) 4720 pg/mL (<450); Troponin I 0.077 ng/mL (0.01-0.034)
== END ==
PROVIDERS: Family Medicine; PCP Family Medicine; Referring Provider Internal Medicine Cardiovascular Disease; Visit Provider Internal Medicine Cardiovascular Disease
DX: D64.9 Anemia, unspecified (principal); I50.42 Chronic combined systolic (congestive) and diastolic (congestive) heart failure; R06.09 Other forms of dyspnea; E85.4 Organ-limited amyloidosis; I43 Cardiomyopathy in diseases classified elsewhere; R79.89 Other specified abnormal findings of blood chemistry; D69.6 Thrombocytopenia, unspecified; E87.1 Hypo-osmolality and hyponatremia; R06.02 Shortness of breath
CPT/HCPCS: 36415; 80048; 83880; 84484; 85025

== ENCOUNTER → 2024-01-29 13:23 | Outpatient (CLI) | payer MEDICARE, OTHER, SELFPAY ==
[2024-01-23 08:59] VITALS: BMI 29.6
[2024-01-29 19:18] LABS: NT-proBNP (BNP-Adult 18+) 5280 pg/mL (<450); Troponin I 0.064 ng/mL (0.01-0.034)
[2024-01-29 19:47] LABS: INR 1.8 (0.9-1.3); Prothrombin Time 20.4 SECONDS (9.4-12.5)
[2024-01-29 19:50] LABS: PTT Partial Thromboplastin Tim 44 SECONDS (25.1-36.5)
== END ==
PROVIDERS: PCP Family Medicine; Visit Provider Family Medicine
DX: R06.02 Shortness of breath (principal); R60.0 Localized edema; R79.89 Other specified abnormal findings of blood chemistry
CPT/HCPCS: 83880; 84484; 85610; 85730

== ENCOUNTER → 2024-02-11 11:46 | Outpatient (CLI) | payer MEDICARE, OTHER, SELFPAY ==
[2024-01-23 08:59] VITALS: BMI 29.6
[2024-02-11 19:37] LABS: BUN Creatinine Ratio 22.7 (6-22); Blood Urea Nitrogen 30 mg/dL (9-20); Calcium 9.3 mg/dL (8.4-10.2); Carbon Dioxide 27 mmol/L (22-32); Chloride 99 mmol/L (98-107); Estimated Glomerular Filt Rate 52 mL/min (>60); Glucose 90 mg/dL (80-110); HEMOLYSIS 17 (0-50); Potassium 4.3 mmol/L (3.4-5.1); Sodium 132 mmol/L (137-145)
[2024-02-11 19:46] LABS: NT-proBNP (BNP-Adult 18+) 4310 pg/mL (<450)
== END ==
PROVIDERS: PCP Family Medicine; Visit Provider Internal Medicine Cardiovascular Disease
DX: R06.09 Other forms of dyspnea (principal); I43 Cardiomyopathy in diseases classified elsewhere; I50.20 Unspecified systolic (congestive) heart failure; E85.4 Organ-limited amyloidosis; I50.32 Chronic diastolic (congestive) heart failure
CPT/HCPCS: 80048; 83880; 84484

== ENCOUNTER → 2024-02-28 08:44 | Outpatient (CLI) | payer MEDICARE, OTHER, SELFPAY ==
[2024-01-23 08:59] VITALS: BMI 29.6
--- NOTE | 2024-02-28 | DI.ECHO.S_ITS ---
Version: 1 Study ID: [id number] [place] [address] Name: STEPHENIE KHAN Study Date: 02/28/2024, 10: 27 AM : 1935 BP: 114 / 75 mmHg Gender: Male Height: 73 in Age: 88 Years Weight: 206 lb BSA: 2.18 mA? Ordering: DIEUDONNE BELLO Referring: DIEUDONNE BELLO Clinician: Adeel Mcleod Reason For Study: CONGESTIVE HEART FAILURE, LOWER EXREMITY EDEMA History: Summary Statements 1) Mildly to moderately increased left ventricular thickness (concentric) with normal size, normal wall motion, and normal systolic function (EF 55-60%%). 2) Mildly enlarged right ventricle with mildly reduced systolic function. 3) There is severe biatrial enlargement (left worse than right). 4) There is mild aortic regurgitation. 5) There is mild mitral regurgitation. 6) The right ventricular systolic pressure is estimated to be at least 54 mmHg based on an estimated right atrial pressure of 15 mm Hg. 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 It measured 5.0cm on 10/03/2022. 8) Compared to the Echo done 10/03/2022, pleural effusion has resolved on this study. Procedure: A two-dimensional transthoracic echocardiogram with color flow and Doppler was performed. The study quality was technically good. There is no prior echocardiogram noted for this patient. The patient was in atrial fibrillation with heart rates between 46-78 bpm during the exam. Left Ventricle: The left ventricle is normal in size. Left ventricular wall thickness is mild-moderately increased. There is no ventricular septal defect visualized. The ejection fraction is estimated to be 55-60%. There are no focal wall motion abnormalities. Right Ventricle: The right ventricle is mildly dilated. The right ventricle appears to be hypertrophied. Right ventricular systolic function is mildly reduced. Atria: There is severe biatrial enlargement. There is no Doppler evidence for an atrial septal defect. Mitral Valve: The mitral valve is normal in structure and function. There is mild mitral regurgitation. There are multiple regurgitant jets present. Aortic Valve: The aortic valve is trileaflet. The aortic valve opens well. There is mild aortic regurgitation. Tricuspid Valve: The tricuspid valve is normal in structure and function. There is mild tricuspid regurgitation. The right ventricular systolic pressure is estimated to be at least 54 mmHg based on an estimated right atrial pressure of 15 mm Hg. Pulmonic Valve: The pulmonic valve is normal in structure and function. There is trace pulmonic regurgitation. Great Vessels: The aortic root is moderately dilated. The ascending aorta is severely enlarged. The pulmonary artery is normal size. The IVC is dilated (diameter is greater than 2.1 cm) and it collapses less than 50% with a sniff. This suggests a high right atrial pressure of 15 mm Hg. Pericardium/ Pleura: There is no pericardial effusion. There is no pleural effusion. 2D and M-Mode Measurements and Calculations LVIDd: 4.9 cm AoV Openin.61 cm LVIDs: 3.5 cm LVOT diam: 2.23 cm IVSd: 1.69 cm Ao root diam: 4.4 cm LVPWd: 1.31 cm asc Aorta Diam: 5.1 cm LV angel. diameter/BSA (cm/m^2): 2.25 LV sys. diameter/BSA (cm/m^2): 1.59 EPSS: 0.38 cm RVD1 (basal): 4.2 cm RVD2 (mid): 3.1 cm LA A4 area: 47.9 field broomer? IVC diam: 2.7 cm LA A2 area: 46.5 field broomer? RA area: 38.5 field broomer? LA length (vol): 8.9 cm RA long axis: 8.0 cm LA vol: 211.8 ml RA vol: 158.3 ml LA vol index: 97.2 ml/mA? RA : 72.6 ml/mA? Doppler Measurements and Calculations Ao V2 max: 151.5 cm/sec LVOT Max Ziggy: 125.4 cm/sec Ao V2 mean: 109.7 cm/sec LV V1 max P.3 mmHg Ao V2 VTI: 31.3 cm LV V1 VTI: 21.3 cm Ao max P.2 mmHg SV(LVOT): 83.0 ml Ao mean P.5 mmHg KYREE(I,D): 2.7 field broomer? KYREE(V,D): 3.2 field broomer? KYREE indexed to BSA (cm^2/m^2): 1.22 sev ratio: 0.68 AI P1/2t: 620.3 msec AI dec slope: 205.6 cm/secA? MV E max ziggy: 69.8 cm/sec MV dec time: 0.18 sec MV A max ziggy: 27.8 cm/sec MV E/A: 2.5 Med Peak E' Ziggy: 4.2 cm/sec Lat Peak E' Ziggy: 8.3 cm/sec E/e' average: 12.6 TR max ziggy: 312.4 cm/sec PA mean P.74 mmHg TR max P.0 mmHg PA V2 max: 72.3 cm/sec Electronically signed by: Laure Henderson 02/28/2024, 1: 43 PM
== END ==
LOC: ECHO 08:46
PROVIDERS: PCP Family Medicine; Referring Provider Family Medicine; Visit Provider Family Medicine
DX: R79.89 Other specified abnormal findings of blood chemistry (principal); R60.0 Localized edema; R06.02 Shortness of breath; I51.7 Cardiomegaly; I35.1 Nonrheumatic aortic (valve) insufficiency; I34.0 Nonrheumatic mitral (valve) insufficiency; I50.32 Chronic diastolic (congestive) heart failure; E85.4 Organ-limited amyloidosis; I43 Cardiomyopathy in diseases classified elsewhere
CPT/HCPCS: 36415; 80048; 83880; 93306

== ENCOUNTER → 2024-02-28 08:48 | Outpatient (CLI) | payer MEDICARE, OTHER, SELFPAY ==
[2024-01-23 08:59] VITALS: BMI 29.6
[2024-02-28 10:36] LABS: Blood Urea Nitrogen 26 mg/dL (9-20); Calcium 9.3 mg/dL (8.4-10.2); Carbon Dioxide 27 mmol/L (22-32); Chloride 104 mmol/L (98-107); Estimated Glomerular Filt Rate 53 mL/min (>60); Glucose 90 mg/dL (80-110); HEMOLYSIS < 15 (0-50); Potassium 4.5 mmol/L (3.4-5.1); Sodium 136 mmol/L (137-145)
[2024-02-28 10:48] LABS: NT-proBNP (BNP-Adult 18+) 4790 pg/mL (<450)
== END ==
PROVIDERS: PCP Family Medicine; Referring Provider Internal Medicine Cardiovascular Disease; Visit Provider Internal Medicine Cardiovascular Disease
DX: I50.32 Chronic diastolic (congestive) heart failure (principal); E85.4 Organ-limited amyloidosis; I43 Cardiomyopathy in diseases classified elsewhere
CPT/HCPCS: 36415; 80048; 83880

== ENCOUNTER → 2024-08-11 14:01 | Outpatient (CLI) | payer MEDICARE, OTHER, SELFPAY ==
[2024-01-23 08:59] VITALS: BMI 29.6
[2024-08-11 14:51] LABS: Hemoglobin 14.7 g/dL (13.5-17.5); Mean Corpuscular HGB Conc 32.6 % (30-36); Mean Corpuscular Hemoglobin 26.6 PG (26-34); Mean Corpuscular Volume 81.5 fL (80-100); Platelet Count 165 X10^3/uL (150-400); Red Blood Cell Count 5.52 X10^6/uL (4.5-5.9); Red Cell Distribution Width 15.8 % (11.6-14.8); White Blood Cell Count 4.2 X10^3/uL (4.5-11.0)
[2024-08-11 15:19] LABS: Blood Urea Nitrogen 34 mg/dL (9-20); Calcium 9.6 mg/dL (8.4-10.2); Carbon Dioxide 25 mmol/L (22-32); Chloride 104 mmol/L (98-107); Creatine Kinase 89 U/L (55-170); Estimated Glomerular Filt Rate 45 mL/min (>60); Glucose 97 mg/dL (70-99); HEMOLYSIS < 15 (0-50); Potassium 4.8 mmol/L (3.4-5.1); Sodium 136 mmol/L (137-145)
[2024-08-11 15:31] LABS: NT-proBNP (BNP-Adult 18+) 5330 pg/mL (<450); Troponin I 0.031 ng/mL (0.01-0.034)
== END ==
PROVIDERS: PCP Family Medicine; Referring Provider Family Medicine; Visit Provider Internal Medicine Cardiovascular Disease
DX: E85.4 Organ-limited amyloidosis (principal); I50.32 Chronic diastolic (congestive) heart failure; I43 Cardiomyopathy in diseases classified elsewhere
CPT/HCPCS: 36415; 80048; 82550; 83880; 84484; 85027

== ENCOUNTER → 2024-10-20 08:45 | Outpatient (CLI) | payer MEDICARE, OTHER, SELFPAY ==
[2024-01-23 08:59] VITALS: BMI 29.6
[2024-10-20 19:34] LABS: Add Manual Diff / Slide Review NO; Hematocrit 44.2 % (41-53); Hemoglobin 14.9 g/dL (13.5-17.5); Lymphocytes Absolute Auto 1100 /uL (1100-4500); Mean Corpuscular HGB Conc 33.8 % (30-36); Mean Corpuscular Hemoglobin 28.3 PG (26-34); Mean Corpuscular Volume 83.8 fL (80-100); Platelet Count 194 X10^3/uL (150-400)
[2024-10-20 19:37] LABS: Appearance Urine UA CLOUDY; Bilirubin Urine UA NEGATIVE (NEGATIVE); Color Urine UA YELLOW; Glucose Urine UA 3+ g/dL (Negative); Ketones Urine UA NEGATIVE (NEGATIVE); Leukocyte Esterase Urine UA 1+ (NEGATIVE); Nitrite Urine UA NEGATIVE (Negative); Occult Blood Urine UA 3+ (Negative); Protein Urine UA 2+ (Negative); Specific Gravity Urine UA 1.010 (1.000-1.035); Urobilinogen Urine UA 0.2 E.U./dL (0.2); pH Urine UA 5.5 (4.5-8.0)
[2024-10-20 19:39] LABS: Alanine Aminotransferase 37 IU/L (<50); Albumin 3.3 g/dL (3.5-5.0); Albumin Globulin Ratio 1.4 (1.0-2.8); Alkaline Phosphatase 120 U/L (38-126); Blood Urea Nitrogen 27 mg/dL (9-20); Calcium 9.0 mg/dL (8.4-10.2); Carbon Dioxide 25 mmol/L (22-32); Chloride 102 mmol/L (98-107); Estimated Glomerular Filt Rate > 60 mL/min (>60); Globulin 2.4 g/dL (1.7-4.1); Glucose 125 mg/dL (70-99); HEMOLYSIS < 15 (0-50); Potassium 4.2 mmol/L (3.4-5.1); Sodium 133 mmol/L (137-145); Total Protein 5.7 g/dL (6.3-8.2)
[2024-10-20 19:41] LABS: HEMOLYSIS 25 (0-50); Iron 52 ug/dL (49-181)
[2024-10-20 19:59] LABS: Hemoglobin A1C% w Est Avg Glu 5.7 % (4.0-6.0)
[2024-10-20 20:11] LABS: Percent Iron Saturation 19 % (20-50); Total Iron Binding Capacity 279 ug/dL (261-462); Transferrin 212 mg/dL (206-381)
[2024-10-20 20:12] LABS: Ferritin 76 ng/mL (18-464)
== END ==
PROVIDERS: PCP Family Medicine; Visit Provider Family Medicine
DX: D64.9 Anemia, unspecified (principal); R31.9 Hematuria, unspecified; R73.09 Other abnormal glucose; E87.1 Hypo-osmolality and hyponatremia; R06.02 Shortness of breath; D69.6 Thrombocytopenia, unspecified; I48.20 Chronic atrial fibrillation, unspecified; Z79.01 Long term (current) use of anticoagulants; E85.4 Organ-limited amyloidosis; I50.42 Chronic combined systolic (congestive) and diastolic (congestive) heart failure; I43 Cardiomyopathy in diseases classified elsewhere; R30.0 Dysuria; R63.4 Abnormal weight loss; R81 Glycosuria
CPT/HCPCS: 80053; 81001; 81002; 82728; 83036; 83540; 83550; 85025; 87077; 87086; 87186

== ENCOUNTER → 2024-11-04 11:18 | Outpatient (CLI) | payer MEDICARE, OTHER, SELFPAY ==
[2024-01-23 08:59] VITALS: BMI 29.6
== END ==
PROVIDERS: PCP Family Medicine; Visit Provider Family Medicine
DX: R31.9 Hematuria, unspecified (principal); N39.0 Urinary tract infection, site not specified; B96.89 Other specified bacterial agents as the cause of diseases classified elsewhere
CPT/HCPCS: 81015; 87077; 87086

== ENCOUNTER → 2024-11-07 11:02 | Outpatient (CLI) | payer MEDICARE, OTHER, SELFPAY ==
[2024-01-23 08:59] VITALS: BMI 29.6
--- NOTE | 2024-11-07 11:07 | DI.CT.S_ITS ---
PROCEDURE: CT IVP A/P W/WO INDICATIONS: persistent hematuria despite UTI treatment TECHNIQUE: Optional 5 mm thick noncontrast images acquired from the diaphragm to the symphysis pubis. After the administration of intravenous contrast, 5 mm thick images acquired from the diaphragm to the symphysis pubis after a 10-minute delay. 2 mm thick coronal and sagittal reformats were then performed of the kidneys and ureters. For radiation dose reduction, the following was used: automated exposure control, adjustment of mA and/or kV according to patient size. COMPARISON: [facility], CT, CT ANGIO CHEST ABDOMEN PELVIS, 02/10/2023, 17:57. FINDINGS: Image quality: Diagnostic. Kidneys and Ureters: Both kidneys are normal in size, without hydronephrosis or nephrolithiasis. Previously present multiple renal cortical cysts including several with thin peripheral calcifications and also peripelvic cysts impinging on the contour of the collecting system and renal pelvis bilaterally are again noted. No solid mass lesion has developed at the cortex or urothelium. Along the course of the ureters no calculus or soft tissue mass is seen. No perinephric fat stranding. There is normal bilateral renal enhancement. Renal calyces appear normal in morphology when filled with contrast. Opacified portions of both ureters demonstrate normal caliber Bladder: Bladder wall thickness is normal. No calcified bladder stones. The left lateral border of the bladder is impinged upon by tortuosity of the left pelvic sidewall arterial structures but no aneurysm or evidence of bladder mass is found. OTHER: Lower chest: Right costophrenic sulcus posterior lung and pleural mild scarring is stable. Note is again made of abnormal caliber of the ascending aorta at 5.1 cm. This has not worsened from 2022. . Liver: No solid mass. Gallbladder: No radiopaque gallstones or wall thickening. Biliary ducts: No biliary dilation. Pancreas: No ductal dilation. Spleen: Size is within normal limits. Adrenal Glands: No adrenal nodules. Stomach and Bowel: Normal colonic caliber, without significant wall thickening. Peritoneum: No abnormal intraperitoneal fluid. No free air. Ventral Wall: No hernia. Abdominal Nodes: No retroperitoneal or mesenteric adenopathy by size criteria. Vessels: Aorta and inferior vena cava are normal in size. PELVIS: Pelvic Organs: Unremarkable. Pelvic Nodes: No enlarged lymph nodes. Miscellaneous: No inguinal hernias are seen. Bones: No aggressive osseous abnormality. IMPRESSION: No nephrolithiasis or filling defects within the opacified renal collecting system or ureters. 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 No evidence of urothelial or renal cortical carcinoma has developed. Source of persistent hematuria is not found. Dictated by: Joel Canas M.D. on 11/07/2024 at 14:29 Approved by: Joel Canas M.D. on 11/07/2024 at 14:35
[2024-11-07 12:24] LABS: Hematocrit 46.3 % (41-53); Hemoglobin 15.5 g/dL (13.5-17.5)
[2024-11-07 12:47] LABS: Blood Urea Nitrogen 27 mg/dL (9-20); Calcium 9.2 mg/dL (8.4-10.2); Carbon Dioxide 25 mmol/L (22-32); Chloride 101 mmol/L (98-107); Estimated Glomerular Filt Rate 52 mL/min (>60); Glucose 83 mg/dL (70-99); HEMOLYSIS < 15 (0-50); Phosphorous 3.9 mg/dL (2.3-3.7); Potassium 4.6 mmol/L (3.4-5.1); Sodium 133 mmol/L (137-145)
[2024-11-07 13:19] LABS: Prostate Specific Antigen < 0.064 ng/mL (0.10-4.00)
[2024-11-07 13:20] LABS: Thyroid Stimulating Hormone 1.17 uIU/mL (0.47-4.68)
[2024-11-07 13:23] LABS: Ferritin 50 ng/mL (18-464)
== END ==
PROVIDERS: PCP Family Medicine; Referring Provider Family Medicine; Visit Provider Family Medicine
DX: Z01.812 Encounter for preprocedural laboratory examination (principal); C61 Malignant neoplasm of prostate; N18.31 Chronic kidney disease, stage 3a; N28.1 Cyst of kidney, acquired; D64.9 Anemia, unspecified; E85.4 Organ-limited amyloidosis; R53.83 Other fatigue; R31.9 Hematuria, unspecified; I43 Cardiomyopathy in diseases classified elsewhere; R30.0 Dysuria
CPT/HCPCS: 36415; 74178; 80048; 82728; 84100; 84153; 84443; 85014; 85018; Q9967

== ENCOUNTER → 2024-11-20 14:14 | Outpatient (CLI) | payer MEDICARE, OTHER, SELFPAY ==
[2024-01-23 08:59] VITALS: BMI 29.6
== END ==
PROVIDERS: PCP Family Medicine; Visit Provider Urology
DX: R39.9 Unspecified symptoms and signs involving the genitourinary system (principal)
CPT/HCPCS: 87077; 87086; 87186

== ENCOUNTER → 2024-12-31 09:04 | Outpatient (CLI) | payer MEDICARE, OTHER, SELFPAY ==
[2024-01-23 08:59] VITALS: BMI 29.6
[2024-12-31 09:56] LABS: Hematocrit 44.7 % (41-53); Hemoglobin 14.8 g/dL (13.5-17.5); Mean Corpuscular HGB Conc 33.0 % (30-36); Mean Corpuscular Hemoglobin 27.7 PG (26-34); Mean Corpuscular Volume 84.0 fL (80-100); Platelet Count 146 X10^3/uL (150-400)
[2024-12-31 10:16] LABS: Phosphorous 3.7 mg/dL (2.3-3.7)
[2024-12-31 10:20] LABS: Blood Urea Nitrogen 29 mg/dL (9-20); Calcium 9.3 mg/dL (8.4-10.2); Carbon Dioxide 26 mmol/L (22-32); Chloride 104 mmol/L (98-107); Estimated Glomerular Filt Rate 55 mL/min (>60); Glucose 96 mg/dL (70-99); HEMOLYSIS < 15 (0-50); Potassium 4.5 mmol/L (3.4-5.1); Sodium 135 mmol/L (137-145)
[2024-12-31 10:27] LABS: NT-proBNP (BNP-Adult 18+) 3090 pg/mL (<450)
== END ==
PROVIDERS: PCP Family Medicine; Referring Provider Family Medicine; Visit Provider Internal Medicine Cardiovascular Disease
DX: I50.32 Chronic diastolic (congestive) heart failure (principal); E74.818 Other disorders of glucose transport; E85.4 Organ-limited amyloidosis
CPT/HCPCS: 36415; 80048; 83880; 84100; 85027

== ENCOUNTER → 2025-01-02 12:40 | Outpatient (CLI) | payer MEDICARE, OTHER, SELFPAY ==
[2024-01-23 08:59] VITALS: BMI 29.6
[2025-01-02 18:31] LABS: Bilirubin Urine UA NEGATIVE (NEGATIVE); Color Urine UA YELLOW; Glucose Urine UA 3+ g/dL (Negative); Ketones Urine UA NEGATIVE (NEGATIVE); Leukocyte Esterase Urine UA 1+ (NEGATIVE); Nitrite Urine UA NEGATIVE (Negative); Occult Blood Urine UA 3+ (Negative); Protein Urine UA 2+ (Negative); Specific Gravity Urine UA 1.010 (1.000-1.035); Urobilinogen Urine UA 0.2 E.U./dL (0.2); pH Urine UA 5.5 (4.5-8.0)
[2025-01-02 18:33] LABS: Appearance Urine UA CLOUDY
[2025-01-02 18:45] LABS: Culture Indicated Urine Specimen Cultured
== END ==
LOC: LAB 12:41
PROVIDERS: PCP Family Medicine; Visit Provider Urology
DX: R31.0 Gross hematuria (principal); R39.9 Unspecified symptoms and signs involving the genitourinary system
CPT/HCPCS: 81001; 87077; 87086; 87186

== ENCOUNTER → 2025-01-16 14:26 | Outpatient (CLI) | payer MEDICARE, OTHER, SELFPAY ==
[2025-01-16 12:39] VITALS: BMI 29.6
== END ==
LOC: LAB 14:27
PROVIDERS: PCP Family Medicine; Visit Provider Family Medicine
DX: R31.9 Hematuria, unspecified (principal)
CPT/HCPCS: 87077; 87086; 87186

== ENCOUNTER → 2025-02-02 12:49 | Outpatient (CLI) | payer MEDICARE, OTHER, SELFPAY ==
[2025-01-16 12:39] VITALS: BMI 29.6
== END ==
PROVIDERS: PCP Family Medicine; Visit Provider Family Medicine
DX: N39.0 Urinary tract infection, site not specified (principal)
CPT/HCPCS: 87077; 87086; 87186

== ENCOUNTER → 2025-02-13 14:23 | Outpatient (CLI) | payer MEDICARE, OTHER, SELFPAY ==
[2025-01-16 12:39] VITALS: BMI 29.6
[2025-02-13 19:38] LABS: NT-proBNP (BNP-Adult 18+) 4610 pg/mL (<450)
[2025-02-13 19:58] LABS: TSH w/ Reflex to FT4 1.24 uIU/mL (0.47-4.68)
[2025-02-13 20:02] LABS: Prostate Specific Antigen < 0.064 ng/mL (0.10-4.00)
[2025-02-13 20:17] LABS: Hemoglobin A1C% w Est Avg Glu 5.8 % (4.0-6.0)
== END ==
PROVIDERS: PCP Family Medicine; Visit Provider Family Medicine
DX: R73.9 Hyperglycemia, unspecified (principal); I48.20 Chronic atrial fibrillation, unspecified; R06.02 Shortness of breath; Z85.46 Personal history of malignant neoplasm of prostate; I51.7 Cardiomegaly; N30.01 Acute cystitis with hematuria; R81 Glycosuria
CPT/HCPCS: 83036; 83880; 84153; 84443

== ENCOUNTER → 2025-02-24 09:26 | Outpatient (CLI) | payer MEDICARE, OTHER, SELFPAY ==
[2025-01-16 12:39] VITALS: BMI 29.6
[2025-02-24 19:06] LABS: Appearance Urine UA CLEAR; Bilirubin Urine UA NEGATIVE (NEGATIVE); Color Urine UA YELLOW; Glucose Urine UA 2+ g/dL (Negative); Ketones Urine UA NEGATIVE (NEGATIVE); Leukocyte Esterase Urine UA NEGATIVE (NEGATIVE); Nitrite Urine UA NEGATIVE (Negative); Occult Blood Urine UA NEGATIVE (Negative); Protein Urine UA NEGATIVE (Negative); Specific Gravity Urine UA 1.010 (1.000-1.035); Urobilinogen Urine UA 0.2 E.U./dL (0.2); pH Urine UA 7.0 (4.5-8.0)
[2025-02-24 19:21] LABS: Culture Indicated Urine Cult Not Indicated
== END ==
PROVIDERS: PCP Family Medicine; Visit Provider Urology
DX: N39.0 Urinary tract infection, site not specified (principal)
CPT/HCPCS: 81001